=== PATIENT | male | born 1935 | race Caucasian/White ===

== ENCOUNTER 2019-11-25 13:05 | Inpatient (IN) | payer MEDICARE ==
[~2019-11-25] VITALS: Ht 165.1 cm; Wt 74.8 kg
--- NOTE | 2019-11-25 13:10 | NUR ---
PT BIB RA 76 FROM HOME, SYNCOPAL EPISODE WHILE SITTING, CHEST DISCOMFORT, PT IS AAOX4, NOT IN RESPIRATORY DISTRESS, HOOKED TO RN ON SITE, KEPT RESTED AND COMFORTABLE, WILL CONTINUE TO MONITOR.
--- NOTE | 2019-11-25 13:15 | NUR ---
AT BEDSIDE FOR EVAL.
[2019-11-25] MEDS ORDERED: VANCOMYCIN 1 GM in IV D5W 250 ML IV ONE (13:30)
[2019-11-25] MEDS ORDERED: PIPERACILLIN /TAZOBACTAM 3.375 G in IV D5W 50 ML IV ONE (13:30)
[2019-11-25] MEDS ORDERED: IV NS 0.9% 1,000 ML BAG IV ONE (13:30)
--- NOTE | 2019-11-25 13:30 | NUR ---
IV LINE ESTABLISHED BLOOD DRAWN AND SENT TO LAB.
--- NOTE | 2019-11-25 13:35 | NUR ---
TRANSIT BUS OPERATOR AT BEDSIDE FOR XRAY.
[2019-11-25 13:38] LABS: BASOPHILS % (AUTO) 0.4 % (0.0-2.0); EOSINOPHILS % (AUTO) 0.8 % (0.0-6.0); HEMATOCRIT 30 % (39-51); HEMOGLOBIN 10.5 g/dL (13.5-17.5); LYMPHOCYTES % (AUTO) 10.6 % (20.0-44.0); MEAN CORPUSCULAR HGB CONC 35 g/dl (31.0-36.0); MEAN CORPUSCULAR VOLUME 94 fL (80-96); MONOCYTES # (AUTO) 0.4 /CMM (0.1-1.30); MONOCYTES % (AUTO) 4.4 % (2.0-12.0); NEUTROPHILS % (AUTO) 83.8 % (43.0-81.0); PLATELET COUNT (AUTO) 146 /CMM (150-450); RED BLOOD CELL COUNT(AUTO) 3.22 MIL/uL (4.5-6.0); WHITE BLOOD COUNT (AUTO) 9.5 K/uL (4.3-11.0)
[2019-11-25] MEDS ORDERED: ACETAMINOPHEN ES 500 MG TABLET ONE (13:44)
[2019-11-25 13:55] LABS: ALANINE AMINOTRANSFERASE 122 U/L (12-78); ALKALINE PHOSPHATASE 239 U/L (46-116); ASPARTATE AMINOTRANSFERASE 122 U/L (15-37); BILIRUBIN,DIRECT 0.8 mg/dL (0.0-0.2); BILIRUBIN,TOTAL 1.3 mg/dL (0.2-1.0); CALCIUM, SERUM 7.6 mg/dL (8.5-10.1); CARBON DIOXIDE 21 mmol/L (21-32); CHLORIDE 103 mmol/L (98-107); CREATININE 2.2 mg/dL (0.6-1.3); GLUCOSE 134 mg/dL (74-106); POTASSIUM 4.8 mmol/L (3.5-5.1); SODIUM SERUM 131 mmol/L (136-145); UREA NITROGEN, BLOOD 32 mg/dL (7-18)
[2019-11-25] MEDS ORDERED: ACETAMINOPHEN ES 500 MG TABLET PO ONE (14:00)
[2019-11-25] MEDS ORDERED: ASPI-1169 PO (14:09)
[2019-11-25] MEDS ORDERED: OMEP40CA13 PO (14:09)
[2019-11-25] MEDS ORDERED: ATOR40TA PO (14:09)
[2019-11-25] MEDS ORDERED: CHOL100040 PO (14:09)
[2019-11-25] MEDS ORDERED: AMLO5TAB4 PO (14:09)
[2019-11-25] MEDS ORDERED: LEVO88TA5 PO (14:09)
[2019-11-25] MEDS ORDERED: CYAN1TAB9 PO (14:09)
[2019-11-25] MEDS ORDERED: OLME40TA12 PO (14:09)
[2019-11-25] MEDS ORDERED: RANO500T5 PO (14:09)
--- NOTE | 2019-11-25 14:50 | NUR ---
PT IS WHEELED TO CT SCAN VIA [facility].
--- NOTE | 2019-11-25 15:30 | NUR ---
PANEL ON-CALL PAGED
--- NOTE | 2019-11-25 15:33 | NUR ---
NURSING SUP GAVE [id number].
[2019-11-25] MEDS ORDERED: IV NS 0.9% 1,000 ML IV PRN (15:34)
--- NOTE | 2019-11-25 15:43 | NUR ---
US TECH AT BEDSIDE FOR ECHO CARDIOGRAM.
[2019-11-25] MEDS ORDERED: DOXA4TAB3 PO (15:47)
[2019-11-25] MEDS ORDERED: TELM80TA9 PO (15:47)
[2019-11-25] MEDS ORDERED: LATA2.5D7 EACHEYE (15:48)
[2019-11-25] MEDS ORDERED: TIMO5DRO35 EACHEYE (15:48)
[2019-11-25] MEDS ORDERED: METRONIDAZOLE 500MG/ NS 100ML 100 ML IV ONE ×2 (16:00→18:06)
[2019-11-25] MEDS ORDERED: CEFTRIAXONE 1 G in IV D5W 50 ML IV ONE (16:00)
--- NOTE | 2019-11-25 16:20 | NUR ---
REPORT GIVEN TO YOEL ISLAS FOR CULLEN.
[2019-11-25 17:00] VITALS: BP 96/49
[2019-11-25] MEDS ORDERED: MAG HYDROX/AL HYDROX/SIMETH 30 ML UDC PO PRN (17:00)
[2019-11-25] MEDS ORDERED: Z GUARD REMEDY 2 OZ OINT TP PRN (17:00)
[2019-11-25] MEDS ORDERED: ONDANSETRON HCL/PF 4 MG/2 ML VIAL IVP PRN (17:00)
[2019-11-25] MEDS ORDERED: MAGNESIUM HYDROXIDE 30 ML UDC PO PRN (17:00)
--- NOTE | 2019-11-25 17:00 | NUR ---
QUALITY PROCESS ENGINEER ADMITTING NOTES ADMITTED PT FROM ER.WITH DX OF SYNCOPE.PT IS ALERT AND [place] SPEAKING. NO SOB ON ROOM AIR AND JUST WANTED TO SLEEP/REST.KEPT COMFORTABLE. DENIES ANY PAIN OR DISTRESS.NO C/O CHEST PAIN AT THIS TIME.ON TELE WITH SR HR 76.ORIENTED TO THE ROOM AND USE OF CALL LIGHT.IV H/L TO LT AC AND RFA INTACT AND PATENT. SKIN INTACT.CALL LIGHT PLACED WITHIN REACH.
[2019-11-25] MEDS: ASPIRIN 81 MG TAB.CHEW PO SCH (18:00)
[2019-11-25] MEDS ORDERED: CEFTRIAXONE 1GM BAG (ER ONLY) 50 ML IV ONE (18:06)
[2019-11-25] MEDS: IV NS 0.9% 1,000 ML IV PRN (18:31)
--- NOTE | 2019-11-25 19:30 | NUR ---
MANAGER CASINO PT IN BED, AWAKE AT THIS TIME. AOX4. ON 2L OF O2 VIA NC. STABLE. ON CARDIAC MONITORING. SAFETY PRECAUTIONS IN PLACE. WILL CONT TO MONITOR
[2019-11-25 20:00] VITALS: BP 112/54
[2019-11-25 20:27] VITALS: BP 112/54
[2019-11-26] VITALS (60 sets, daily range): BP systolic 72–140; BP diastolic 26–90
--- NOTE | 2019-11-26 05:43 | NUR ---
INCIDENT RESPONSE CONSULTANT NO SIGNIFICANT CHANGES, NO COMPLAIN OF CHEST PAIN, MONITORED ACCORDINGLY, NEEDS ATTENDED AND ANTICIPATED, KEPT CLEAN, DRY AND COMFORTABLE AT ALL TIMES, NO S/S OF DISTRESS, SAFETY MEASURES AT ALL TIMES. ENDORSE TO NEXT SHIFT POC.
[2019-11-26] MEDS: IV NS 0.9% 1,000 ML IV PRN (06:48)
--- NOTE | 2019-11-26 07:01 | NUR ---
RECEIVED CALL FROM THE LAB BLOOD CULTURE GRAM NEGATIVE RODS WILL PAGED HOSPITALIST
--- NOTE | 2019-11-26 07:10 | NUR ---
PAGED EPIC RELAYING GRAM NEGATIVE RODS AWAITING CALL BACK WILL ENDORSE NEXT SHIFT
--- NOTE | 2019-11-26 07:11 | NUR ---
SPOKE TO DR. TAM RELAYED GRAM NEGATIVE RODS BLOOD PRELIM NO NEW ORDERS AT THIS TIME. READ BACK ADN VERIFIED ORDERS NOTED AND CARRIED OUT
[2019-11-26 07:51] LABS: BASOPHILS % (AUTO) 0.2 % (0.0-2.0); HEMATOCRIT 34 % (39-51); HEMOGLOBIN 11.7 g/dL (13.5-17.5); LYMPHOCYTES # (AUTO) 0.5 /CMM (0.8-4.8); LYMPHOCYTES % (AUTO) 2.7 % (20.0-44.0); MEAN CORPUSCULAR HGB CONC 35 g/dl (31.0-36.0); MEAN CORPUSCULAR VOLUME 94 fL (80-96); MONOCYTES # (AUTO) 0.4 /CMM (0.1-1.30); NEUTROPHILS # (AUTO) 16.9 /CMM (1.8-8.9); NEUTROPHILS % (AUTO) 95.1 % (43.0-81.0); PLATELET COUNT (AUTO) 148 /CMM (150-450); RED BLOOD CELL COUNT(AUTO) 3.62 MIL/uL (4.5-6.0); WHITE BLOOD COUNT (AUTO) 17.8 K/uL (4.3-11.0)
[2019-11-26 08:00] LABS: ALANINE AMINOTRANSFERASE 554 U/L (12-78); ALBUMIN 3.4 g/dL (3.4-5.0); ALKALINE PHOSPHATASE 400 U/L (46-116); ASPARTATE AMINOTRANSFERASE 319 U/L (15-37); BILIRUBIN,TOTAL 4.4 mg/dL (0.2-1.0); CALCIUM, SERUM 8.5 mg/dL (8.5-10.1); CARBON DIOXIDE 15 mmol/L (21-32); CHLORIDE 100 mmol/L (98-107); CHOLESTEROL 103 mg/dL (<200); CREATININE 2.7 mg/dL (0.6-1.3); GLUCOSE 121 mg/dL (74-106); HDL CHOLESTEROL 36 mg/dL (40-60); LDL 60 mg/dL (0-99); PHOSPHORUS 4.4 mg/dL (2.5-4.9); POTASSIUM 4.9 mmol/L (3.5-5.1); SODIUM SERUM 132 mmol/L (136-145); TOTAL PROTEIN, SERUM 6.9 g/dL (6.4-8.2); TRIGLYCERIDES 112 mg/dL (30-150); UREA NITROGEN, BLOOD 42 mg/dL (7-18)
[2019-11-26] MEDS ORDERED: CEFTRIAXONE 1 G in IV D5W 50 ML IV SCH (08:00)
[2019-11-26 08:37] LABS: IRON, SERUM 12 ug/dl (50-175); TOTAL IRON BINDING CAPACITY 227 ug/dl (250-450)
[2019-11-26] MEDS: LEVOTHYROXINE SODIUM 88 MCG TABLET PO SCH (08:42)
[2019-11-26] MEDS: CHOLECALCIFEROL 1,000 UNIT TABLET (VIT D3) PO SCH (08:42)
[2019-11-26] MEDS: PANTOPRAZOLE 40 MG TABLET.DR PO SCH (08:42)
[2019-11-26 08:43] LABS: MAGNESIUM 1.1 mg/dL (1.8-2.4)
--- NOTE | 2019-11-26 08:43 | NUR ---
MS/RN Troponin Call received from lab with critical result: -Troponin 5.006 -Magnesium 1.1
--- NOTE | 2019-11-26 08:45 | NUR ---
MS/RN Dr Florentin Lerma called to inform of critical troponin result. Order given for heparin infusion.
--- NOTE | 2019-11-26 08:56 | NUR ---
MS/merchandising coordinator called Lab called to inform that stat blood draw had been ordered for patient as heparin needed to be calculated. Stated that somebody would come over to draw.
[2019-11-26] MEDS ORDERED: CARVEDILOL 3.125 MG TABLET PO SCH (09:00)
[2019-11-26 09:10] LABS: FERRITIN 1938 ng/mL (8-388)
[2019-11-26] MEDS ORDERED: IV NS 0.9% 500 ML IV ONE (09:30)
[2019-11-26] MEDS: Magnesium 1GM/D5W 100ML PREMIX 100 ML IV SCH ×4 (09:44→12:21)
--- NOTE | 2019-11-26 10:15 | NUR ---
MS/RN Heparin order Heparin order sheet completed and faxed to pharmacy, order entered for bolus.
--- NOTE | 2019-11-26 10:37 | NUR ---
MS/RN Heparin bolus Heparin bolus 5,600units administered as per order.
--- NOTE | 2019-11-26 10:45 | NUR ---
MS/RN Desaturating Patient starting to desaturate on 3l oxygen, saturation noted to be low 70's, increased to 5l, saturation still in 70's. Placed on non rebreather mask at 15l. Saturation 90% Still hypotensive despite 500ml bolus being administered. 1033 - 79/41 1037 - 72/41
--- NOTE | 2019-11-26 10:58 | NUR ---
MS/RN Higher level of care Telephone order given to transfer patient to ICU, order entered by MD for ABG and dobutamine drip. Family made aware of patient's change in condition by Dr Denton. Patient remains full code.
[2019-11-26] MEDS ORDERED: HEPARIN SODIUM, PORCINE 5000 UNITS/1 ML VIAL SQ ONE (11:00)
--- NOTE | 2019-11-26 11:00 | NUR ---
MS/retail branch manager Patient transferred to ICU room 254 for higher level of care. All personal belongings with patient including cell phone (endorsed to charge nurse) Bedside report given to Sebastian.
[2019-11-26] MEDS: HEPARIN INFUSION/D5W 500 ML IV PRN (11:09)
[2019-11-26 11:19] LABS: ABG BASE EXCESS -11.7 mmol/L; ABG OXYGEN SATURATION 91.3 % (92.0-98.5); ABG PCO2 25.5 mmHg (35.0-45.0); ABG PO2 67.5 mmHg (75.0-100.0); COHb 0.4 % (0.5-1.5); MetHb 0.3 % (0.0-1.5); O2Hb 90.7 % (94.0-97.0); SITE, ABG Right Brachial; VENT MODE, BG NON REBREATHER 100%
[2019-11-26] MEDS ORDERED: DOBUTamine 500 MG in IV D5W 210 ML IV PRN ×4 (11:30)
[2019-11-26] MEDS: PIPERACILLIN /TAZOBACTAM 2.25 G in IV D5W 50 ML IV SCH ×2 (12:52→18:28)
--- NOTE | 2019-11-26 13:47 | NUR ---
RN NOTE Received patient transfer at [address] [place] [address] for desat 90% on 15LPM via NRB. Patient is awake, A/Ox3, Cameroonian speaking. Trop 5, started on Heparin drip at 1200 u/hr, bolus given by previous nurse. LAC PIV intact. Mg IVPB ongoing. SBP 80's, obtained order for Dobutamine. ABG resulted, made Dr. Denton aware, with rec of Bipap, Dr. Veras in the unit, made aware for ABG. With order for high flow, placed high flow by RT, 95% on 30LPM 80% FIO2. Dr. Veras ordered to swab for Covid test, specimen gathered and sent to lab. Placed on isolation prec for Covid.
[2019-11-26] MEDS: ASPIRIN 81 MG TAB.CHEW PO SCH (18:28)
--- NOTE | 2019-11-26 19:15 | NUR ---
RN OPENING ICU NOTES RECEIVED PT AWAKE ON BED A/O X 4 [place] CITIZEN SPEAKING UNDERSTAND LITTLE PORTUGUESE, VERBAL AND COOPERATIVE,ON HIGH FLOW 30L 80% SPO2 95% WITH LAC# 18 WITH ONGOING DOBUTAMIN @ 2MCG/KG/MIN AND NS @ 75ML/HR HEPARIN WAS HOLD FOR 60 MINS D/T PTT 150 PER PROTOCOL WILL RESUME AFTER 60 MINS ON TELE MONITOR WITH READING SINUS RHYTHM @ 70'S ON DROPLET ISOLATION TO R/O COVID 19 PENDING RESULTS, SAFETY MEASURE MAINTAINED CALL LIGHT WITHIN REACH BED ON LOWEST POSITION AND LOCKED WILL CONT TO MONITOR
--- NOTE | 2019-11-26 19:28 | NUR ---
RN NOTE Received call from lab, PTT >150, held Hepairn and endorsed to Khurram, will follow jatin, hold for 1 hr then decrease 250U/hr, Khurram agreed.
--- NOTE | 2019-11-26 20:30 | NUR ---
DIRECTOR OF PRECLINICAL RESEARCH NOTES HEPARIN RESTARTED @ 950 UNITS/HR PER PROTOCOL PTT ORDERED ON 11/27/2019 @ 9365
--- NOTE | 2019-11-26 21:00 | NUR ---
MANAGER BUSINESS BANKING NOTES PICC LINE INSERTED BY PICC LINE NURSE JASEN DIALLO @ OH PATENT WITH GOOD BACKFLOW
[2019-11-27] VITALS (94 sets, daily range): BP systolic 89–148; BP diastolic 25–94
[2019-11-27] MEDS: PIPERACILLIN /TAZOBACTAM 2.25 G in IV D5W 50 ML IV SCH ×3 (01:30→17:34)
[2019-11-27] MEDS: IV NS 0.9% 1,000 ML IV PRN ×2 (02:00→16:18)
[2019-11-27 02:37] LABS: BASOPHILS % (AUTO) 0.1 % (0.0-2.0); HEMATOCRIT 29 % (39-51); LYMPHOCYTES # (AUTO) 0.6 /CMM (0.8-4.8); LYMPHOCYTES % (AUTO) 3.6 % (20.0-44.0); MEAN CORPUSCULAR HGB CONC 35 g/dl (31.0-36.0); MEAN CORPUSCULAR VOLUME 93 fL (80-96); MONOCYTES # (AUTO) 0.6 /CMM (0.1-1.30); MONOCYTES % (AUTO) 3.4 % (2.0-12.0); NEUTROPHILS # (AUTO) 15.9 /CMM (1.8-8.9); NEUTROPHILS % (AUTO) 92.9 % (43.0-81.0); PLATELET COUNT (AUTO) 123 /CMM (150-450); RED BLOOD CELL COUNT(AUTO) 3.07 MIL/uL (4.5-6.0); WHITE BLOOD COUNT (AUTO) 17.1 K/uL (4.3-11.0)
[2019-11-27 02:49] LABS: ALANINE AMINOTRANSFERASE 307 U/L (12-78); ALBUMIN 2.7 g/dL (3.4-5.0); ALKALINE PHOSPHATASE 266 U/L (46-116); ASPARTATE AMINOTRANSFERASE 160 U/L (15-37); BILIRUBIN,TOTAL 3.6 mg/dL (0.2-1.0); CALCIUM, SERUM 7.5 mg/dL (8.5-10.1); CARBON DIOXIDE 18 mmol/L (21-32); CHLORIDE 95 mmol/L (98-107); GLUCOSE 287 mg/dL (74-106); MAGNESIUM 2.1 mg/dL (1.8-2.4); PHOSPHORUS 3.7 mg/dL (2.5-4.9); POTASSIUM 4.2 mmol/L (3.5-5.1); SODIUM SERUM 130 mmol/L (136-145); UREA NITROGEN, BLOOD 44 mg/dL (7-18)
--- NOTE | 2019-11-27 03:30 | NUR ---
SSN/SSBN WEAPONS EQUIPMENT OPERATOR NOTES APTT NEED TO BE REDRAWN DUE TO THE FIRST SPECIMEN WAS COLLECTED FROM PICC LINE NEED TO GET FROM OPPOSITE EXTREMITIES
--- NOTE | 2019-11-27 06:00 | NUR ---
COATING MACHINE FEEDER NOTES RECEIVED PTT RESULTS WITH 118.8 HOLD HEPARIN DRIP 60 MINS PER PROTOCOL THEN WILL RESUME IT @ 700 UNITS/HR PRE PROTOCOL PTT WAS ORDERED @ [address] DUONG NOTED AND CARRIED OUT
--- NOTE | 2019-11-27 07:06 | NUR ---
PIPE LINE REPAIRER NOTES PT IS SLEEPING ON BED EASY TO AWAKE, ALERT ORIENTED X4 CAMBOD[place] SPEAKING, ON HI FLOW O2 SPO2@ 95% WITH OH TLC WITH ONGOING NS @ 75ML/HR HEPARIN DRIP RESTARTED @ 700 UNITS/HR ON TELE MONITOR WITH CURRENT READING OF SINUS RHYTHM DROPLET PRECAUTION MAINTAINED FOR R/O COVID 19 SAFTY MEASURE MAINTAINED BED ON LOWEST POSITION ALL NEEDS ATTENDED WILL CONT TO MONITOR
[2019-11-27] MEDS: LEVOTHYROXINE SODIUM 88 MCG TABLET PO SCH (07:24)
[2019-11-27] MEDS: PANTOPRAZOLE 40 MG TABLET.DR PO SCH (07:25)
[2019-11-27] MEDS: CHOLECALCIFEROL 1,000 UNIT TABLET (VIT D3) PO SCH (08:21)
[2019-11-27 10:45] LABS: ABG BASE EXCESS -9.7 mmol/L; ABG OXYGEN SATURATION 96.4 % (92.0-98.5); ABG PCO2 26.4 mmHg (35.0-45.0); ABG PH 7.356 (7.350-7.450); ABG PO2 96.4 mmHg (75.0-100.0); AaDO2 446.3 mmHg; MetHb 0.3 % (0.0-1.5); O2Hb 96.1 % (94.0-97.0); SITE, ABG Right Radial; VENT MODE, BG 45L 80%
[2019-11-27] MEDS: HEPARIN INFUSION/D5W 500 ML IV PRN (11:06)
--- NOTE | 2019-11-27 14:00 | NUR ---
STEWARD/STEWARDESS THIRD NOTES PTT CAME WITH 64.4 SEC PER PROTOCOL THERES NO CHANGES ON RATE SO IT WILL STAY ON 700 UNITS/HR
[2019-11-27] MEDS: SOD FERRIC GLUC 125 MG in IV NS 0.9% 100 ML IV SCH (14:14)
[2019-11-27] MEDS: ASPIRIN 81 MG TAB.CHEW PO SCH (17:29)
--- NOTE | 2019-11-27 18:45 | NUR ---
SUPERINTENDENT OPERATING CLOSING NOTES PT IS AWAKE, ALERT ORIENTED X4 [place] SPEAKING, ON HI FLOW FIO2 80% O2 SPO2@ 95% WITH OH TLC WITH ONGOING NS @ 75ML/HR HEPARIN DRIP RESTARTED @ 700 UNITS/HR ON TELE MONITOR WITH CURRENT READING OF SINUS RHYTHM SAFETY MEASURE MAINTAINED BED ON LOWEST POSITION ALL NEEDS ATTENDED WILL ENDORSE TO BODYWORK THERAPIST NURSE
--- NOTE | 2019-11-27 19:00 | NUR ---
SLUBBER TENDER NOTE RECEIVED PATIENT IN BED RESTING, HOB ELEVATED, ON HIGH FLOW O2 @ 45 L. BREATHING EVEN AND NON LABORED. NO SOB NOTED AT THIS TIME. PATIENT IS A&O X3. ABLE TO MAKE NEEDS KNOWN. ON HEPARIN DRIP @ 700 UNITS/HOUR. IN NO APPARENT DISTRESS NOTES AT THIS TIME. NO CURRENT S/S OF BLEEDING. IV FLUIDS NS @ 75ML/HR. IV SITE ON OH TLC CLEAN AND PATENT. NO C/O OF PAIN AT THIS TIME. PATIENT IS MOTIVATED TO SELF CARE AND SELF REPOSITIONING IN BED. URINAL AT BEDSIDE. BED LOWERED AND LOCKED FOR SAFETY. WILL CONTINUE TO MONITOR.
[2019-11-28] VITALS (44 sets, daily range): BP systolic 95–137; BP diastolic 39–75
[2019-11-28] MEDS: PIPERACILLIN /TAZOBACTAM 2.25 G in IV D5W 50 ML IV SCH ×3 (01:28→17:20)
--- NOTE | 2019-11-28 03:00 | NUR ---
LINTER OPERATOR NOTE PATIENT REFUSED BED BATH AT THIS TIME. PATIENT IS A&O X3. MOTIVATED TO SELF CARE. ABLE TO REPOSITION SELF ON BED. WILL CONTINUE TO MONITOR.
[2019-11-28 04:50] LABS: BASOPHILS % (AUTO) 0.1 % (0.0-2.0); EOSINOPHILS % (AUTO) 0.4 % (0.0-6.0); HEMATOCRIT 29 % (39-51); HEMOGLOBIN 10.2 g/dL (13.5-17.5); LYMPHOCYTES # (AUTO) 0.8 /CMM (0.8-4.8); MEAN CORPUSCULAR HGB CONC 35 g/dl (31.0-36.0); MEAN CORPUSCULAR VOLUME 94 fL (80-96); MONOCYTES # (AUTO) 0.6 /CMM (0.1-1.30); MONOCYTES % (AUTO) 4.5 % (2.0-12.0); NEUTROPHILS # (AUTO) 11.4 /CMM (1.8-8.9); PLATELET COUNT (AUTO) 135 /CMM (150-450); RED BLOOD CELL COUNT(AUTO) 3.09 MIL/uL (4.5-6.0); WHITE BLOOD COUNT (AUTO) 12.8 K/uL (4.3-11.0)
[2019-11-28 05:07] LABS: ALANINE AMINOTRANSFERASE 209 U/L (12-78); ALBUMIN 2.6 g/dL (3.4-5.0); ALKALINE PHOSPHATASE 276 U/L (46-116); ASPARTATE AMINOTRANSFERASE 67 U/L (15-37); BILIRUBIN,TOTAL 1.8 mg/dL (0.2-1.0); CALCIUM, SERUM 8.1 mg/dL (8.5-10.1); CARBON DIOXIDE 18 mmol/L (21-32); CHLORIDE 104 mmol/L (98-107); CREATININE 2.3 mg/dL (0.6-1.3); GLUCOSE 112 mg/dL (74-106); PHOSPHORUS 3.1 mg/dL (2.5-4.9); POTASSIUM 4.1 mmol/L (3.5-5.1); SODIUM SERUM 135 mmol/L (136-145); TOTAL PROTEIN, SERUM 6.2 g/dL (6.4-8.2); UREA NITROGEN, BLOOD 41 mg/dL (7-18)
--- NOTE | 2019-11-28 05:15 | NUR ---
MASON FOREMAN/SUPERINTENDANT NOTE RECEIVED CRITICAL LAB VALUE FROM [facility] FOR PATIENT TROPONIN OF 6.[address] DUONG NOTIFIED. PATIENT IS CURRENTLY ON HEPARIN DRIP @ 700 U/HR. STOPPED HEPARIN DRIP AT THIS TIME PER HEPARIN PROTOCOL.
--- NOTE | 2019-11-28 05:45 | NUR ---
BAR HELPER NOTE HEPARIN DRIP RESUMED AND DECREASED TO 550 U/HR AT THIS TIME PER PROTOCOL. PATIENT IS STABLE, NO COMPLAINTS OF PAIN, NO BLEEDING NOTED AT THIS TIME. WILL CONTINUE TO MONITOR.
[2019-11-28] MEDS: IV NS 0.9% 1,000 ML IV PRN ×2 (06:00→22:25)
--- NOTE | 2019-11-28 06:46 | NUR ---
PANTOGRAPHER NOTE PATIENT REMAINED STABLE THROUGHOUT THE NIGHT. PATIENT KEPT ON HEPARIN DRIP PER PROTOCOL. NO C/O OF PAIN. NO S/S OF BLEEDING. KEPT ON O2 HIGH FLOW @ 45 L. O2 SATURATION FLUCTUATED BETWEEN 87-92% THROUGHOUT THE NIGHT. PATIENT REFUSED BED BATH AND LINEN CHANGE IN THIS SHIFT. PATIENT REQUESTED NOT TO BE DISTURBED WHILE SLEEPING. PATIENT IS A&O X3. WILL ENDORSE TO AM SHIFT RN FOR CONTINUATION OF CARE.
--- NOTE | 2019-11-28 07:15 | NUR ---
GASKET FORMER OPENING NOTE Received patient asleep in bed no signs of distress. On High Flow 100% tolerating well. Appears calm and relaxed. Patient is AO x4 no co pain or discomfort. Has Heparin drip @ 550u/hr and NS @ 75ml/hr runniing in OH TLC. Patient has PTT @ 11:45am. Safety measure reinforced. Bed locked and on lowest position. Call light within reach. Will cont to monitor.
[2019-11-28] MEDS: PANTOPRAZOLE 40 MG TABLET.DR PO SCH (08:09)
[2019-11-28] MEDS: LEVOTHYROXINE SODIUM 88 MCG TABLET PO SCH (08:09)
[2019-11-28] MEDS: CHOLECALCIFEROL 1,000 UNIT TABLET (VIT D3) PO SCH (08:11)
[2019-11-28 10:28] LABS: ABG BASE EXCESS -7.9 mmol/L; ABG OXYGEN SATURATION 91.5 % (92.0-98.5); ABG PH 7.407 (7.350-7.450); ABG PO2 64.6 mmHg (75.0-100.0); AaDO2 479.6 mmHg; COHb 0.3 % (0.5-1.5); MetHb 0.3 % (0.0-1.5); SITE, ABG Right Brachial; VENT MODE, BG figh flow @ 80%
--- NOTE | 2019-11-28 10:59 | NUR ---
HIGH FLOW SETTINGS BELOW CHANGE PER DR. RAWLS: FLOW 60 L FIO2 100% Addendum: 11/28/19 at 1100 by SYLVESTER LINARES RT Amended: Links added.
--- NOTE | 2019-11-28 13:00 | NUR ---
SHUTTLE BUS DRIVER NOTE Receive PTT of 41.6. Per protocol increase to 150u/hr. Currently at 550u/hr. Now on 700u/hr.
[2019-11-28] MEDS: SOD FERRIC GLUC 125 MG in IV NS 0.9% 100 ML IV SCH (16:02)
[2019-11-28] MEDS: ASPIRIN 81 MG TAB.CHEW PO SCH (17:11)
--- NOTE | 2019-11-28 19:00 | NUR ---
ICU CLOSING NOTE Patient in bed awake calm and relaxed. No signs of distress. AO x4 No co pain or discomfort. Heart and lung sounds within normal limits. No co of chest pain. Blood pressure remained within normal limits. Patient was able to have bowel movement mixed with urine in commode. Unable to collect for Fecal Occult Blood test. No signs of bleeding. Skin is intact. Continue on Heparin drip @ 700unit/hr and NS @ 75ml/hr tolerating well on OH TLC. Oz saturation within 95-100%. Tolerating High Flow @ 60L and Fio2 100%. PTT will be drawn on 1900. Safety measures reinforced. Call light within reach. Vital signs within normal limitis. Bed locked and on lowest position. Assisted with ADLs and hygiene. All needs met. All due meds given. Will endorse to parachute folder nurse for kenan.
--- NOTE | 2019-11-28 19:15 | NUR ---
ICU/RN RECEIVED PATIENT A/OX3 IN BED WITH NO SIGN OF ANY RESPIRATORY DISTRESS. PATIENT IS ON A HIGH FLOW OF 60L AT 100%. SATURATING AT 95% WITH NO COMPLAINT OF ANY SOB. PATIENT HAS A OH PICC LINE WITH HEPARIN RUNNING AT 700UNIT AND NS AT 75CC/HR.PATIENT IS SR AT BEDSIDE MONITOR. PATIENT IS ABLE TO AMBULATE WITH ASSISTANCE. URINAL IS AT BEDSIDE WELL COMMODE. PATIENT IS AWARE TO PRESS CALL LIGHT BUTTON IF NEEDING TO USE COMMODE. ALL SAFETY PRECAUTIONS APPLIED. WILL CONTINUE TO MONITOR PATIENT.
--- NOTE | 2019-11-28 20:09 | NUR ---
RECEIVED PTT LAB FOR 0, PTT IS 54.2 PER [facility] PROTOCOL NO CHANGE ON HEPARIN DRIP. HEPARIN CONTINUES TO RUN AT 700UNITS/ WILL CONTINUE TO MONITOR PATIENT.
[2019-11-28] MEDS: HEPARIN INFUSION/D5W 500 ML IV PRN (22:26)
[2019-11-29] VITALS (24 sets, daily range): BP systolic 108–139; BP diastolic 49–112
[2019-11-29] MEDS: PIPERACILLIN /TAZOBACTAM 2.25 G in IV D5W 50 ML IV SCH ×2 (01:32→09:34)
--- NOTE | 2019-11-29 07:12 | NUR ---
ICU/RN PATIENT IN BED WITH NO SIGN OF ANY DISTRESS. PATIENT CURRENTLY ON THE PHONE. PATIENT CONTINUES ON HIGH FLOW 02 OF 60L ON 100% SATURATING AT 96%. PATIENT CONTINUES ON HEPARIN DRIP AT 700 UNIT ON OH PICC LINE AND NS RUNNING AT 75CC/HR. ALL SAFETY PRECAUTION HAVE BEEN APPLIED. ENDORSED PATIENT TO MORNING SHIFT NURSE FOR CULLEN.
--- NOTE | 2019-11-29 07:20 | NUR ---
RN OPENING NOTE: RECEIVED PATIENT IN BED THIS MORNING. PATIENT IS ALERT AND ORIENTED X3, RESPONDS APPROPRIATELY. ON HIGH FLOW O2, TOLERATING WELL, SATING WELL, NO SIGNS OF RESPIRATORY DISTRESS NOTED. NO SIGNS OF RESPIRATORY DISTRESS NOTED. AMBULATORY, STEADY GAIT, USES BEDSIDE COMMODE AND URINAL. PICC LINE OH, #18 LAC, C/D/I, FLUSHES WELL, NO SIGNS OF COMPLICATIONS NOTED. HEPARIN DRIP RUNNING AT 700 UNITS/HR, NO SIGNS OF BLEEDING NOTED. SAFETY MEASURES IMPLEMENTED, BED IN LOWEST POSITION, LOCKED, SIDE RAILS UP X2, CALL LIGHT WITHIN REACH. WILL CONTINUE TO MONITOR PATIENT FOR CHANGES. Addendum: 11/29/19 at 1038 by KWESI MARTE RN PATIENT ON BED SIDE MONITOR, SR, BBB, INVERTED T WAVES NOTED WITH HR IN THE 60S.
[2019-11-29] MEDS: ACETAMINOPHEN 325 MG TABLET PO PRN (08:16)
[2019-11-29] MEDS: CHOLECALCIFEROL 1,000 UNIT TABLET (VIT D3) PO SCH (08:16)
[2019-11-29] MEDS: LEVOTHYROXINE SODIUM 88 MCG TABLET PO SCH (08:16)
[2019-11-29] MEDS: PANTOPRAZOLE 40 MG TABLET.DR PO SCH (08:16)
[2019-11-29 11:26] LABS: BASOPHILS % (AUTO) 0.4 % (0.0-2.0); EOSINOPHILS % (AUTO) 2.3 % (0.0-6.0); HEMATOCRIT 30 % (39-51); HEMOGLOBIN 10.3 g/dL (13.5-17.5); LYMPHOCYTES # (AUTO) 0.6 /CMM (0.8-4.8); LYMPHOCYTES % (AUTO) 8.2 % (20.0-44.0); MEAN CORPUSCULAR HGB CONC 34 g/dl (31.0-36.0); MEAN CORPUSCULAR VOLUME 94 fL (80-96); MONOCYTES # (AUTO) 0.7 /CMM (0.1-1.30); MONOCYTES % (AUTO) 9.4 % (2.0-12.0); NEUTROPHILS # (AUTO) 5.8 /CMM (1.8-8.9); NEUTROPHILS % (AUTO) 79.7 % (43.0-81.0); PLATELET COUNT (AUTO) 146 /CMM (150-450); RED BLOOD CELL COUNT(AUTO) 3.17 MIL/uL (4.5-6.0); WHITE BLOOD COUNT (AUTO) 7.2 K/uL (4.3-11.0)
[2019-11-29 11:35] LABS: ALANINE AMINOTRANSFERASE 126 U/L (12-78); ALBUMIN 2.5 g/dL (3.4-5.0); ALKALINE PHOSPHATASE 300 U/L (46-116); ASPARTATE AMINOTRANSFERASE 33 U/L (15-37); BILIRUBIN,TOTAL 1.3 mg/dL (0.2-1.0); CALCIUM, SERUM 8.1 mg/dL (8.5-10.1); CARBON DIOXIDE 20 mmol/L (21-32); CHLORIDE 106 mmol/L (98-107); CREATININE 1.7 mg/dL (0.6-1.3); GLUCOSE 107 mg/dL (74-106); MAGNESIUM 1.6 mg/dL (1.8-2.4); PHOSPHORUS 2.3 mg/dL (2.5-4.9); POTASSIUM 3.9 mmol/L (3.5-5.1); SODIUM SERUM 138 mmol/L (136-145); TOTAL PROTEIN, SERUM 6.2 g/dL (6.4-8.2); UREA NITROGEN, BLOOD 31 mg/dL (7-18)
[2019-11-29] MEDS: IV NS 0.9% 1,000 ML IV PRN (12:11)
[2019-11-29] MEDS: SOD FERRIC GLUC 125 MG in IV NS 0.9% 100 ML IV SCH (13:59)
[2019-11-29] MEDS ORDERED: HEPARIN SODIUM, PORCINE 5000 UNITS/1 ML VIAL IV ONE (15:00)
[2019-11-29] MEDS ORDERED: K PHOS NEUTRAL 250 MG TABLET PO ONE (15:30)
[2019-11-29] MEDS: ASPIRIN 81 MG TAB.CHEW PO SCH (17:18)
--- NOTE | 2019-11-29 19:14 | NUR ---
RN CLOSING NOTE: PATIENT REMAINS IN BED. NO SIGNS OF RESPIRATORY DISTRESS NOTED. NO SIGNS OF ACUTE DISTRESS NOTED. TELE MONITOR SR/BBB IN THE 70S. SAFETY MEASURES IMPLEMENTED, BED IN LOWEST POSITION, LOCKED, SIDE RAILS UP X2, CALL LIGHT WITHIN REACH. ENDORSED TO ONCOMING SHIFT RN FOR CONTINUITY OF CARE.
--- NOTE | 2019-11-29 19:30 | NUR ---
PATIENT'S IV ON THE LAC INFILTRATED AND BLEEDING. REMOVED IV AND SINCE PATIENT IS ON HEPARIN DRIP I MONITORED FOR ANY EXCESSIVE BLEEDING. PRESSURE WAS APPLIED. WILL CONTINUE TO MONITOR FOR ANY BLEEDING.
[2019-11-29] MEDS: CEFTRIAXONE 1 G in IV D5W 50 ML IV SCH (20:25)
--- NOTE | 2019-11-29 20:30 | NUR ---
PT IS AWAKE ALERT ON HFNC 45L, 60% FIO2. NO DISTRESS, CONTINUE TO MONITOR. Addendum: 11/29/19 at 2030 by DEVEN FLORES RT Amended: Links added.
--- NOTE | 2019-11-29 22:04 | NUR ---
PTT LAB 56.2. PER [facility] PROTOCOL NO CHANGE ON HEPARIN DRIP AND NEW PTT DRAW IN 24HRS. WILL CONTINUE TO MONITOR PATIENT.
[2019-11-30] VITALS (23 sets, daily range): BP systolic 71–148; BP diastolic 28–79
[2019-11-30] MEDS: IV NS 0.9% 1,000 ML IV PRN (04:20)
[2019-11-30] MEDS: HEPARIN INFUSION/D5W 500 ML IV PRN (04:22)
[2019-11-30 04:48] LABS: BASOPHILS % (AUTO) 0.5 % (0.0-2.0); EOSINOPHILS % (AUTO) 2.9 % (0.0-6.0); HEMATOCRIT 27 % (39-51); HEMOGLOBIN 9.4 g/dL (13.5-17.5); LYMPHOCYTES % (AUTO) 12.9 % (20.0-44.0); MEAN CORPUSCULAR HGB CONC 35 g/dl (31.0-36.0); MEAN CORPUSCULAR VOLUME 94 fL (80-96); MONOCYTES # (AUTO) 0.9 /CMM (0.1-1.30); MONOCYTES % (AUTO) 11.5 % (2.0-12.0); NEUTROPHILS # (AUTO) 5.7 /CMM (1.8-8.9); NEUTROPHILS % (AUTO) 72.2 % (43.0-81.0); PLATELET COUNT (AUTO) 150 /CMM (150-450); RED BLOOD CELL COUNT(AUTO) 2.86 MIL/uL (4.5-6.0); WHITE BLOOD COUNT (AUTO) 7.9 K/uL (4.3-11.0)
[2019-11-30 05:11] LABS: CALCIUM, SERUM 7.4 mg/dL (8.5-10.1); CARBON DIOXIDE 19 mmol/L (21-32); CHLORIDE 109 mmol/L (98-107); CREATININE 1.4 mg/dL (0.6-1.3); GLUCOSE 168 mg/dL (74-106); PHOSPHORUS 3.9 mg/dL (2.5-4.9); POTASSIUM 3.4 mmol/L (3.5-5.1); SODIUM SERUM 140 mmol/L (136-145); UREA NITROGEN, BLOOD 27 mg/dL (7-18)
[2019-11-30 05:27] LABS: OCCULT BLOOD STOOL POSITIVE (NEGATIVE)
--- NOTE | 2019-11-30 07:30 | NUR ---
RN OPENING NOTE: RECEIVED PATIENT IN BED THIS MORNING. PATIENT IS ALERT AND ORIENTED X3, RESPONDS APPROPRIATELY. ON HIGH FLOW O2, TOLERATING WELL, SATING WELL, NO SIGNS OF RESPIRATORY DISTRESS NOTED. NO SIGNS OF ACUTE DISTRESS NOTED. PATIENT ON BED SIDE MONITOR, SR, BBB, INVERTED T WAVES NOTED WITH HR IN THE 60S. AMBULATORY WITH ASSIST, USES BEDSIDE COMMODE AND URINAL. PICC LINE OH, #18 LAC, C/D/I, FLUSHES WELL, NO SIGNS OF COMPLICATIONS NOTED. SAFETY MEASURES IMPLEMENTED, BED IN LOWEST POSITION, LOCKED, SIDE RAILS UP X2, CALL LIGHT WITHIN REACH. WILL CONTINUE TO MONITOR PATIENT FOR CHANGES.
[2019-11-30] MEDS: CHOLECALCIFEROL 1,000 UNIT TABLET (VIT D3) PO SCH (08:07)
[2019-11-30] MEDS: POTASSIUM CHLORIDE 20 MEQ TAB.PRT.SR PO SCH ×2 (08:07→09:23)
[2019-11-30] MEDS: LEVOTHYROXINE SODIUM 88 MCG TABLET PO SCH (08:07)
[2019-11-30] MEDS: PANTOPRAZOLE 40 MG TABLET.DR PO SCH (08:07)
[2019-11-30] MEDS: ENOXAPARIN SODIUM 40 MG/0.4 ML DISP.SYRIN SQ SCH (08:12)
[2019-11-30] MEDS: ACETAMINOPHEN 325 MG TABLET PO PRN (08:18)
[2019-11-30] MEDS: Magnesium 1GM/D5W 100ML PREMIX 100 ML IV SCH ×4 (10:14→14:28)
[2019-11-30 10:40] LABS: ABG BASE EXCESS -7.1 mmol/L; ABG OXYGEN SATURATION 98.2 % (92.0-98.5); ABG PCO2 27.2 mmHg (35.0-45.0); ABG PH 7.401 (7.350-7.450); AaDO2 438.8 mmHg; COHb 0.3 % (0.5-1.5); MetHb 0.2 % (0.0-1.5); O2Hb 97.7 % (94.0-97.0); SITE, ABG Left Brachial; VENT MODE, BG NRB
--- NOTE | 2019-11-30 11:00 | NUR ---
RT 0900 PER MD ORDER, PLACED PT ON NRB POST ABG 1 HR. 1040 OBTAIN ABG AND PLACED PT ON 6L NC
[2019-11-30] MEDS: SOD FERRIC GLUC 125 MG in IV NS 0.9% 100 ML IV SCH (13:54)
[2019-11-30] MEDS: Potassium Chloride 40 MEQ in IV NS 0.9% 1,000 ML IV PRN (16:45)
[2019-11-30] MEDS: ASPIRIN 81 MG TAB.CHEW PO SCH (17:46)
--- NOTE | 2019-11-30 19:14 | NUR ---
RN CLOSING NOTE: PATIENT REMAINS IN BED. NO SIGNS OF RESPIRATORY DISTRESS NOTED. NO SIGNS OF ACUTE DISTRESS NOTED. TELE MONITOR SR/BBB IN THE 60S. SAFETY MEASURES IMPLEMENTED, BED IN LOWEST POSITION, LOCKED, SIDE RAILS UP X2, CALL LIGHT WITHIN REACH. ENDORSED TO ONCOMING SHIFT RN FOR CONTINUITY OF CARE.
--- NOTE | 2019-11-30 19:30 | NUR ---
RN OPENING NOTE RECEIVED PT IN BED. IN SEMI FOWLERS POSITION, PT AWAKE A/O X3. ON 6 LITERS VIA NC. PT IN NO RESPIRATORY DISTRESS. C/O NO PAIN AT THIS TIME. OH MIDLINE PATENT AND INTACT, FLUSHING WELL. URINAL AT BEDSIDE. SAFETY MEASURES IMPLEMENTED, BED IN LOWEST POSITION AND LOCKED, SIDE RAILS UP X2, CALL LIGHT WITHIN REACH, WILL CONTINUE TO MONITOR PT.
[2019-11-30] MEDS: CEFTRIAXONE 1 G in IV D5W 50 ML IV SCH (20:10)
[2019-12-01] VITALS (14 sets, daily range): BP systolic 124–161; BP diastolic 56–84
[2019-12-01 04:34] LABS: BASOPHILS % (AUTO) 0.6 % (0.0-2.0); EOSINOPHILS % (AUTO) 3.9 % (0.0-6.0); HEMATOCRIT 27 % (39-51); HEMOGLOBIN 9.4 g/dL (13.5-17.5); LYMPHOCYTES % (AUTO) 12.9 % (20.0-44.0); MEAN CORPUSCULAR HGB CONC 35 g/dl (31.0-36.0); MEAN CORPUSCULAR VOLUME 94 fL (80-96); MONOCYTES # (AUTO) 0.9 /CMM (0.1-1.30); MONOCYTES % (AUTO) 11.8 % (2.0-12.0); NEUTROPHILS # (AUTO) 5.3 /CMM (1.8-8.9); NEUTROPHILS % (AUTO) 70.8 % (43.0-81.0); PLATELET COUNT (AUTO) 173 /CMM (150-450); RED BLOOD CELL COUNT(AUTO) 2.85 MIL/uL (4.5-6.0); WHITE BLOOD COUNT (AUTO) 7.5 K/uL (4.3-11.0)
[2019-12-01 04:45] LABS: CALCIUM, SERUM 8.1 mg/dL (8.5-10.1); CARBON DIOXIDE 22 mmol/L (21-32); CHLORIDE 111 mmol/L (98-107); CREATININE 1.4 mg/dL (0.6-1.3); GLUCOSE 94 mg/dL (74-106); MAGNESIUM 1.9 mg/dL (1.8-2.4); POTASSIUM 4.1 mmol/L (3.5-5.1); SODIUM SERUM 143 mmol/L (136-145); UREA NITROGEN, BLOOD 21 mg/dL (7-18)
[2019-12-01] MEDS: Potassium Chloride 40 MEQ in IV NS 0.9% 1,000 ML IV PRN (06:01)
--- NOTE | 2019-12-01 07:03 | NUR ---
RN CLOSING NOTE PT AWAKE IN BED. A/O X3. ON 6 LITERS VIA NC. PT IN NO RESPIRATORY DISTRESS, C/O NO PAIN DURING SHIFT. OH MIDLINE PATENT AND INTACT, FLUSHING WELL. PT CURRENTLY NPO. ENDORSED TO AM RN ABOUT TRANSFER TO [place], PAPERWORK AND REPORT NEEDS TO BE GIVEN. NURSE MADE AWARE OF P/U TIME. SAFETY MEASURES IMPLEMENTED, BED IN LOWEST POSITION AND LOCKED, SIDE RAILS UP X2, CALL LIGHT WITHIN REACH. ENDORSED TO AM RN FOR CULLEN.
[2019-12-01] MEDS: PANTOPRAZOLE 40 MG TABLET.DR PO SCH (07:30)
[2019-12-01] MEDS: LEVOTHYROXINE SODIUM 88 MCG TABLET PO SCH (07:30)
[2019-12-01] MEDS ORDERED: ENOX40DI SQ (07:56)
[2019-12-01] MEDS ORDERED: CEFT1VIA15 IV (07:56)
[2019-12-01] MEDS: CHOLECALCIFEROL 1,000 UNIT TABLET (VIT D3) PO SCH (08:14)
[2019-12-01] MEDS: ENOXAPARIN SODIUM 40 MG/0.4 ML DISP.SYRIN SQ SCH (08:15)
--- NOTE | 2019-12-01 09:49 | NUR ---
RN NOTE 0715: Received patient awake, A/Ox4, Iranian speaking, understand Estonian. On 6LPM of O2 via Nc, 95% sat. With OH PICC intact, IVF NS with 40K @ 75. SR with BBB on the monitor. 0830: S/E by Dr. Ramirez, finalized DC papers, printed and discussed with patient, signed and will give copy to transporters. Held am meds for possible procedure today. Patient remained NPO, patient aware for the preop. Assisted to commode, noted with soft brown stool. 0945: Report given to Neha DIALLO to [facility] [phone]. Picked up by 3 personnels. Belongings checked and given to patient.
[2019-12-01] MEDS: ASPIRIN 81 MG TAB.CHEW PO SCH (17:13)
--- NOTE | 2019-12-01 17:15 | NUR ---
Tele/RN - Assessment Received patient from [facility] awake, A/O x 4, s/p left heart cath, angio-seal of the right femoral artery, dressing clean, dry, intact, no bleeding, no hematoma, no swelling on the right groin puncture site. RLE is warm, pulse strength good, sensation intact. Patient denies abdominal pain, groin pain, or back pain. VSS. Tele shows SR with BBB. Patient will remain flat on bed until 17:30 and will resume activity once post-op restriction completed.
--- NOTE | 2019-12-01 17:22 | NUR ---
Tele/RN - Notes Called pharmacy spoke with Gretta to prepare Ferrlecit and to send IVF NS with 40meq KCl.
--- NOTE | 2019-12-01 18:31 | NUR ---
Tele/RN - End of shift notes No significant change in condition, no bleeding noted on the right groin puncture site, activity resumed, denies pain, stable on 5lpm via NC. Will continue with current medical management.
[2019-12-01] MEDS: SOD FERRIC GLUC 125 MG in IV NS 0.9% 100 ML IV SCH (20:20)
[2019-12-01] MEDS: ZOLPIDEM TARTRATE 5 MG TABLET PO PRN (20:47)
[2019-12-01] MEDS: CEFTRIAXONE 1 G in IV D5W 50 ML IV SCH (21:20)
[2019-12-02] VITALS: BP 155/72
[2019-12-02 04:00] VITALS: BP 144/76
--- NOTE | 2019-12-02 06:55 | NUR ---
LIBRARIAN ASSISTANT NOTES AWAKE & RESPONSIVE. NOT IN ANY DISTRESS. NO SOB NOTED. DENIES ANY PAIN OR DISCOMFORT AT THIS TIME. ON TELE SR @ 74 WITH IV-HL PATENT & INTACT. MONITORED ACCORDINGLY. CALL LIGHT WITHIN REACH. BED IN LOWEST POSITION. SR UP X 2 FOR SAFETY. WILL ENDORSE TO NEXT SHIFT.
[2019-12-02 08:00] VITALS: BP 138/70
--- NOTE | 2019-12-02 08:00 | NUR ---
CONTRACT CLERK OPENING NOTES Received Patient awake and resting in bed. A/O x 3, Chadian speaking. VS stable with no acute distres Addendum: 12/02/19 at 0941 by VALENCIA HUNTER RN DISREGARD, INCOMPLETE
--- NOTE | 2019-12-02 08:00 | NUR ---
GLOBAL CHIEF EXPERIENCE OFFICER OPENING NOTES Received Patient awake and resting in bed. A/O x 3, Mosotho speaking. VS stable with no acute distress. Breathing even and unlabored on 4LPM via NC with no respiratory distress. Denies pain. No signs and symptoms of pain. Telemonitor in place and patent reading SR with HR-67. OH PICC Line intact, patent and flushing well. Safety precautions in place. Bed locked and set to lowest position with side rails x 2 up. All needs rendered at this time. Call light within reach. Will continue to monitor.
[2019-12-02] MEDS ORDERED: ATORVASTATIN 40 MG TABLET PO SCH (08:30)
[2019-12-02] MEDS ORDERED: ENOXAPARIN SODIUM 40 MG/0.4 ML DISP.SYRIN SQ SCH (09:00)
[2019-12-02] MEDS: PANTOPRAZOLE 40 MG TABLET.DR PO SCH (09:04)
[2019-12-02] MEDS: LEVOTHYROXINE SODIUM 88 MCG TABLET PO SCH (09:04)
[2019-12-02] MEDS: CHOLECALCIFEROL 1,000 UNIT TABLET (VIT D3) PO SCH (09:04)
[2019-12-02] MEDS: ENOXAPARIN SODIUM 40 MG/0.4 ML DISP.SYRIN SQ SCH (09:05)
[2019-12-02 09:41] LABS: BASOPHILS % (AUTO) 0.5 % (0.0-2.0); CALCIUM, SERUM 8.7 mg/dL (8.5-10.1); CARBON DIOXIDE 23 mmol/L (21-32); CHLORIDE 106 mmol/L (98-107); CREATININE 1.4 mg/dL (0.6-1.3); EOSINOPHILS % (AUTO) 3.4 % (0.0-6.0); GLUCOSE 114 mg/dL (74-106); HEMATOCRIT 31 % (39-51); HEMOGLOBIN 10.7 g/dL (13.5-17.5); LYMPHOCYTES # (AUTO) 0.9 /CMM (0.8-4.8); LYMPHOCYTES % (AUTO) 11.1 % (20.0-44.0); MEAN CORPUSCULAR HGB CONC 34 g/dl (31.0-36.0); MEAN CORPUSCULAR VOLUME 95 fL (80-96); MONOCYTES # (AUTO) 0.6 /CMM (0.1-1.30); MONOCYTES % (AUTO) 7.8 % (2.0-12.0); NEUTROPHILS % (AUTO) 77.2 % (43.0-81.0); PLATELET COUNT (AUTO) 226 /CMM (150-450); POTASSIUM 3.8 mmol/L (3.5-5.1); SODIUM SERUM 142 mmol/L (136-145); UREA NITROGEN, BLOOD 18 mg/dL (7-18); WHITE BLOOD COUNT (AUTO) 7.8 K/uL (4.3-11.0)
[2019-12-02 09:47] LABS: ALANINE AMINOTRANSFERASE 140 U/L (12-78); ALBUMIN 2.9 g/dL (3.4-5.0); ALKALINE PHOSPHATASE 337 U/L (46-116); ASPARTATE AMINOTRANSFERASE 68 U/L (15-37); BILIRUBIN,TOTAL 0.8 mg/dL (0.2-1.0); MAGNESIUM 1.5 mg/dL (1.8-2.4); PHOSPHORUS 3.4 mg/dL (2.5-4.9); TOTAL PROTEIN, SERUM 6.9 g/dL (6.4-8.2)
[2019-12-02] MEDS: FUROSEMIDE 40 MG/4 ML VIAL IV SCH ×3 (13:04→21:14)
[2019-12-02] MEDS: POTASSIUM CHLORIDE 20 MEQ TAB.PRT.SR PO SCH ×3 (13:04→15:12)
[2019-12-02 16:00] VITALS: BP 155/78
[2019-12-02] MEDS: ASPIRIN 81 MG TAB.CHEW PO SCH (17:08)
--- NOTE | 2019-12-02 18:22 | NUR ---
MS RN CLOSING NOTES Patient awake and resting in bed. A/O x 3, Tristanian speaking. VS stable with no acute distress. Breathing even and unlabored on 4LPM via NC with no respiratory distress. Denies pain. No signs and symptoms of pain. OH PICC Line intact, patent and flushing well. Safety precautions in place. Bed locked and set to lowest position with side rails x 2 up. All needs rendered at this time. Call light within reach. Will endorse plan of care to oncoming shift.
--- NOTE | 2019-12-02 19:10 | NUR ---
MS RN OPENING NOTES: PATIENT IN BED AWAKE, A/O X4. NO SOB NOTED. NOT IN PAIN. CALL LIGHT WITHIN REACH. BED IN LOWEST AND LOCKED POSITION.
[2019-12-02 20:00] VITALS: BP 142/74
[2019-12-02] MEDS: CEFTRIAXONE 1 G in IV D5W 50 ML IV SCH (21:13)
[2019-12-02] MEDS: ZOLPIDEM TARTRATE 5 MG TABLET PO PRN (21:14)
--- NOTE | 2019-12-03 06:14 | NUR ---
MS RN CLOSING NOTES: PATIENT IN BED ASLEEP. RESTED THROUGHOUT THE NIGHT. NO COMPLAIN OF PAIN. NO SOB NOTED. CALL LIGHT WITHIN REACH. BED ALARM ON. URINAL AT THE BEDSIDE. BED IN LOWEST AND LOCKED POSITION.
[2019-12-03 06:43] LABS: BASOPHILS % (AUTO) 0.5 % (0.0-2.0); EOSINOPHILS % (AUTO) 3.4 % (0.0-6.0); HEMATOCRIT 34 % (39-51); HEMOGLOBIN 11.5 g/dL (13.5-17.5); LYMPHOCYTES # (AUTO) 1.2 /CMM (0.8-4.8); LYMPHOCYTES % (AUTO) 13.4 % (20.0-44.0); MEAN CORPUSCULAR HGB CONC 34 g/dl (31.0-36.0); MEAN CORPUSCULAR VOLUME 95 fL (80-96); MONOCYTES # (AUTO) 0.8 /CMM (0.1-1.30); MONOCYTES % (AUTO) 8.9 % (2.0-12.0); NEUTROPHILS # (AUTO) 6.5 /CMM (1.8-8.9); NEUTROPHILS % (AUTO) 73.8 % (43.0-81.0); PLATELET COUNT (AUTO) 257 /CMM (150-450); RED BLOOD CELL COUNT(AUTO) 3.58 MIL/uL (4.5-6.0); WHITE BLOOD COUNT (AUTO) 8.8 K/uL (4.3-11.0)
[2019-12-03 07:03] LABS: CALCIUM, SERUM 9.1 mg/dL (8.5-10.1); CARBON DIOXIDE 27 mmol/L (21-32); CHLORIDE 103 mmol/L (98-107); CREATININE 1.7 mg/dL (0.6-1.3); GLUCOSE 102 mg/dL (74-106); POTASSIUM 3.8 mmol/L (3.5-5.1); SODIUM SERUM 141 mmol/L (136-145); UREA NITROGEN, BLOOD 22 mg/dL (7-18)
[2019-12-03] MEDS: PANTOPRAZOLE 40 MG TABLET.DR PO SCH (07:44)
[2019-12-03] MEDS: LEVOTHYROXINE SODIUM 88 MCG TABLET PO SCH (07:45)
[2019-12-03] MEDS ORDERED: SULF1TAB48 PO (07:50)
[2019-12-03] MEDS ORDERED: POTA10TA PO (07:50)
[2019-12-03] MEDS ORDERED: FURO-144 PO (07:50)
--- NOTE | 2019-12-03 08:00 | NUR ---
MS RN OPENING NOTES RECEIVED PATIENT IN BED, AWAKE, CONSCIOUS, COOPERATIVE, BREATHING AT ROOM AIR, NO SIGNS OF RESPIRATORY DISTRESS, OH PICC TRIPLE LUMEN SL, SIDE RAILS UP FOR SAFETY.
[2019-12-03] MEDS: CHOLECALCIFEROL 1,000 UNIT TABLET (VIT D3) PO SCH (08:57)
[2019-12-03] MEDS: ENOXAPARIN SODIUM 40 MG/0.4 ML DISP.SYRIN SQ SCH (08:58)
--- NOTE | 2019-12-03 13:01 | NUR ---
MS SENIOR SPECIALIST NOTES PATIENT WAS AWAKE, CONSCIOUS, COOPERATIVE, BREATHING AT ROOM AIR, NO SIGNS OF RESPIRATORY DISTRESS, WHEELCHAIR WAS USE GOING TO LOBBY TO MEET HIS SON.
== END 2019-12-03 12:55 | disposition home health service (06) | DRG 871 ==
LOC: ER 13:07 → TELE 16:59 → ICU 11-26 10:52 → TELE 11-26 10:52 → UNDODISIN 12-01 10:00 → TELE 12-01 15:47 → MED 12-02 08:45
PROVIDERS: ADMIT Internal Medicine; ATTEND Family Medicine
PROC: 02HV33Z Insertion of Infusion Device into Superior Vena Cava, Percutaneous Approach (ICD-10-PCS; principal; 2019-11-26)
PROC: B548ZZA Ultrasonography of Superior Vena Cava, Guidance (ICD-10-PCS; 2019-11-26)
DX: A41.51 Sepsis due to Escherichia coli [E. coli] (principal); J96.01 Acute respiratory failure with hypoxia; N17.0 Acute kidney failure with tubular necrosis; R65.21 Severe sepsis with septic shock; K72.00 Acute and subacute hepatic failure without coma; R57.0 Cardiogenic shock; I21.A1 Myocardial infarction type 2; K57.32 Diverticulitis of large intestine without perforation or abscess without bleeding; E87.1 Hypo-osmolality and hyponatremia; N39.0 Urinary tract infection, site not specified; K81.0 Acute cholecystitis; I25.10 Atherosclerotic heart disease of native coronary artery without angina pectoris; D64.9 Anemia, unspecified; E03.9 Hypothyroidism, unspecified; I13.10 Hypertensive heart and chronic kidney disease without heart failure, with stage 1 through stage 4 chronic kidney disease, or unspecified chronic kidney disease; N18.9 Chronic kidney disease, unspecified; K44.9 Diaphragmatic hernia without obstruction or gangrene; I25.2 Old myocardial infarction; Z95.5 Presence of coronary angioplasty implant and graft; Z95.1 Presence of aortocoronary bypass graft; Z90.79 Acquired absence of other genital organ(s); Z79.82 Long term (current) use of aspirin; Z79.899 Other long term (current) drug therapy; E86.1 Hypovolemia; E83.42 Hypomagnesemia; E87.6 Hypokalemia; K82.8 Other specified diseases of gallbladder; K76.0 Fatty (change of) liver, not elsewhere classified; I70.8 Atherosclerosis of other arteries; I70.0 Atherosclerosis of aorta; G90.8 Other disorders of autonomic nervous system; E87.70 Fluid overload, unspecified; K21.9 Gastro-esophageal reflux disease without esophagitis; H40.9 Unspecified glaucoma
CPT/HCPCS: 36415; 36569; 36600; 71045-TC; 71250-TC; 76700-TC; 76705-TC; 80048-TC; 80053-TC; 80061-TC; 80076-TC; 82272-TC; 82728-TC; 82803-TC; 82962-TC; 83540-TC; 83605-TC; 83735-TC; 83880; 84100-TC; 84484-TC; 85025-TC; 85378-TC; 85610-TC; 85730-TC; 87040-TC; 87081-TC; 87086-TC; 87186-TC; 93307-TC; 93970-TC; 94760-TC; C1751; G0378; J0696; J1250; J1644; J1650; J1940; J2543; J2916; J3475; J3480; J7030; J7040; J7050; J7060

== ENCOUNTER 2021-08-11 16:36 | Inpatient (IN) | payer MEDICARE ==
[~2021-08-11] VITALS: Ht 182.9 cm; Wt 75.9 kg
[~2021-08-11 16:36] MED LIST: ASPI-1169 PO; ATOR40TA PO; CHOL100040 PO; CYAN1TAB9 PO; DOXA4TAB3 PO; FURO-144 PO; LATA2.5D15 EACHEYE; LEVO88TA5 PO; OMEP40CA21 PO; POTA10TA PO; RANO500T6 PO; SULF1TAB48 PO; TELM80TA9 PO; TIMO5DRO35 EACHEYE
--- NOTE | 2021-08-11 16:41 | NUR ---
TO ER BED 4, BIBRA 76 FROM HOME C/O CHEST PAIN PRESSURE LIKE NON RADIATING STARTED YESTERDAY, AAOX3, BREATHING EVEN AND NON LABORED, CONNECTED TO MONITOR, AWAITING MD ORDERS
[2021-08-11] MEDS ORDERED: RANO500T3 PO (16:58)
[2021-08-11] MEDS ORDERED: MAGN250T2 PO (16:58)
[2021-08-11] MEDS ORDERED: MELA5TAB PO (16:58)
[2021-08-11] MEDS ORDERED: ZINC50TA72 PO (16:58)
[2021-08-11] MEDS ORDERED: ALLO100T PO (16:58)
[2021-08-11] MEDS ORDERED: FOLI0.8T2 PO (16:58)
[2021-08-11] MEDS ORDERED: ICOS1CAP PO (16:58)
[2021-08-11] MEDS ORDERED: AMLO-213 PO (16:58)
[2021-08-11] MEDS ORDERED: NITROGLYCERIN PACKET 1 GM PACKET TD ONE (17:00)
[2021-08-11] MEDS ORDERED: NITROGLYCERIN PACKET 1 GM PACKET ONE (17:20)
--- NOTE | 2021-08-11 17:40 | NUR ---
COVID SWABS DONE AND SENT TO LAB
[2021-08-11 17:42] LABS: BASOPHILS % (AUTO) 0.6 % (0.0-2.0); HEMATOCRIT 33 % (39-51); HEMOGLOBIN 11.4 g/dL (13.5-17.5); LYMPHOCYTES # (AUTO) 1.1 K/uL (0.8-4.8); LYMPHOCYTES % (AUTO) 13.6 % (20.0-44.0); MEAN CORPUSCULAR HGB CONC 35 g/dl (31.0-36.0); MEAN CORPUSCULAR VOLUME 99 fL (80-96); MONOCYTES # (AUTO) 0.6 K/uL (0.1-1.30); MONOCYTES % (AUTO) 7.1 % (2.0-12.0); NEUTROPHILS # (AUTO) 6.2 K/uL (1.8-8.9); NEUTROPHILS % (AUTO) 77.7 % (43.0-81.0); PLATELET COUNT (AUTO) 189 K/uL (150-450); RED BLOOD CELL COUNT(AUTO) 3.31 MIL/uL (4.5-6.0)
[2021-08-11 18:17] LABS: CALCIUM, SERUM 8.4 mg/dL (8.5-10.1); CARBON DIOXIDE 23 mmol/L (21-32); CHLORIDE 101 mmol/L (98-107); CREATININE 2.1 mg/dL (0.6-1.3); GLUCOSE 153 mg/dL (74-106); POTASSIUM 4.2 mmol/L (3.5-5.1); SODIUM SERUM 138 mmol/L (136-145); UREA NITROGEN, BLOOD 41 mg/dL (7-18)
[2021-08-11] MEDS ORDERED: FUROSEMIDE 40 MG/4 ML VIAL IV ONE (18:30)
[2021-08-11] MEDS ORDERED: FUROSEMIDE 40 MG/4 ML VIAL ONE (19:17)
[2021-08-11] MEDS ORDERED: ONDANSETRON HCL/PF 4 MG/2 ML VIAL IVP PRN (21:30)
[2021-08-11] MEDS ORDERED: Z GUARD REMEDY 4 OZ OINT TP PRN (21:30)
[2021-08-11] MEDS ORDERED: ZOLPIDEM TARTRATE 5 MG TABLET PO PRN (21:30)
[2021-08-11] MEDS ORDERED: ACETAMINOPHEN 325 MG TABLET PO PRN (21:30)
[2021-08-11] MEDS ORDERED: MAG HYDROX/AL HYDROX/SIMETH 30 ML UDC PO PRN (21:30)
[2021-08-11] MEDS ORDERED: MAGNESIUM HYDROXIDE 30 ML UDC PO PRN (21:30)
--- NOTE | 2021-08-12 04:21 | NUR ---
PATIENT RESTING COMFORTABLY NO COMPLAITNS AT THIS TIME.
--- NOTE | 2021-08-12 04:49 | NUR ---
PT WAS NOTED SATTING @ 90-93% ON NON REBREATHER @ 15LPM. PT IS NOTED WITH WET COUGH AND GET AGGREVATED WHEN HE LIES DOWN. CURLY ARAUJO WAS INFORMED AND RECEIVED AN ORDER TO GIVE LASIX 40MG IVP X 1. NOTED AND CARRIED OUT
[2021-08-12] MEDS ORDERED: FUROSEMIDE 40 MG/4 ML VIAL ONE (04:55)
[2021-08-12] MEDS ORDERED: FUROSEMIDE 20 MG/2 ML VIAL IV SCH ×2 (05:00→09:00)
[2021-08-12] MEDS: LEVOTHYROXINE SODIUM 88 MCG TABLET PO SCH (07:30)
[2021-08-12] MEDS ORDERED: PANTOPRAZOLE 40 MG TABLET.DR PO SCH (07:30)
--- NOTE | 2021-08-12 07:38 | NUR ---
ASSESSED PT ON BED ASLEEP, EASILY AROUSABLE. NOT IN RESPIRATORY DISTRESS, V/S STABLE, KEPT RESTED AND COMFORTABLE. WILL CONTINUE TO MONITOR.
[2021-08-12] MEDS ORDERED: LEVOTHYROXINE SODIUM 100 MCG TABLET ONE (07:42)
[2021-08-12] MEDS ORDERED: PANTOPRAZOLE 40 MG TABLET.DR PO ONE (07:42)
[2021-08-12 07:49] LABS: CALCIUM, SERUM 8.6 mg/dL (8.5-10.1); CARBON DIOXIDE 21 mmol/L (21-32); CHLORIDE 100 mmol/L (98-107); GLUCOSE 164 mg/dL (74-106); MAGNESIUM 1.3 mg/dL (1.8-2.4); PHOSPHORUS 4.3 mg/dL (2.5-4.9); POTASSIUM 3.7 mmol/L (3.5-5.1); SODIUM SERUM 138 mmol/L (136-145); UREA NITROGEN, BLOOD 39 mg/dL (7-18)
[2021-08-12 07:55] LABS: BASOPHILS # (AUTO) 0.1 K/uL (0.0-0.2); BASOPHILS % (AUTO) 0.5 % (0.0-2.0); EOSINOPHILS % (AUTO) 0.1 % (0.0-6.0); HEMATOCRIT 32 % (39-51); HEMOGLOBIN 11.7 g/dL (13.5-17.5); LYMPHOCYTES # (AUTO) 0.6 K/uL (0.8-4.8); LYMPHOCYTES % (AUTO) 6.3 % (20.0-44.0); MEAN CORPUSCULAR HGB CONC 36 g/dl (31.0-36.0); MEAN CORPUSCULAR VOLUME 99 fL (80-96); MONOCYTES # (AUTO) 0.6 K/uL (0.1-1.30); MONOCYTES % (AUTO) 5.8 % (2.0-12.0); NEUTROPHILS % (AUTO) 87.3 % (43.0-81.0); PLATELET COUNT (AUTO) 189 K/uL (150-450); RED BLOOD CELL COUNT(AUTO) 3.28 MIL/uL (4.5-6.0); WHITE BLOOD COUNT (AUTO) 10.4 K/uL (4.3-11.0)
[2021-08-12] MEDS ORDERED: FUROSEMIDE 40 MG/4 ML VIAL IV SCH (09:00)
[2021-08-12] MEDS ORDERED: Medication Not On Formulary EA (Icosapent Ethyl (Vascepa) 2 GM) PO SCH (09:00)
[2021-08-12] MEDS: RANOLAZINE 500 MG TAB.ER.12H PO SCH ×2 (09:15→21:10)
[2021-08-12] MEDS: VIT B CMPLX 3/FA/VIT C/BIOTIN 1 TAB TABLET PO SCH (09:15)
[2021-08-12] MEDS ORDERED: CHOLECALCIFEROL 1,000 UNIT TABLET (VIT D3) ONE ×2 (09:16→09:18)
[2021-08-12] MEDS: CHOLECALCIFEROL 1,000 UNIT TABLET (VIT D3) PO SCH (09:16)
[2021-08-12] MEDS ORDERED: FUROSEMIDE 100 MG/10 ML VIAL ONE (09:23)
[2021-08-12 09:50] LABS: THYROID STIMULATING HORMONE 3.242 uIU/mL (0.358-3.74)
--- NOTE | 2021-08-12 10:29 | NUR ---
ER PHLEB AT BEDSIDE FOR BLOOD DRAW.
[2021-08-12 10:54] LABS: ABG BASE EXCESS 1.3 mmol/L; ABG PCO2 33.5 mmHg (35.0-45.0); ABG PO2 84.7 mmHg (75.0-100.0); COHb 0.3 % (0.5-1.5); MetHb 0.3 % (0.0-1.5); O2Hb 95.2 % (94.0-97.0); SITE, ABG Left Brachial; VENT MODE, BG NRB MASK
[2021-08-12 11:10] LABS: CHOLESTEROL 228 mg/dL (<200); HDL CHOLESTEROL 58 mg/dL (40-60); LDL 145 mg/dL (0-99); TRIGLYCERIDES 90 mg/dL (30-150)
[2021-08-12] MEDS ORDERED: MAGNESIUM OXIDE 400 MG TABLET PO ONE (12:00)
[2021-08-12] MEDS ORDERED: HEPARIN INFUSION/D5W 500 ML IV ONE (12:08)
[2021-08-12] MEDS ORDERED: HEPARIN SODIUM, PORCINE 5000 UNITS/1 ML VIAL ONE (12:08)
--- NOTE | 2021-08-12 12:20 | NUR ---
HEPARIN 6000 UNITS BOLUS GIVEN ORDERED BY .
[2021-08-12] MEDS: HEPARIN INFUSION/D5W 500 ML IV PRN (12:26)
[2021-08-12] MEDS ORDERED: HEPARIN SODIUM, PORCINE 5000 UNITS/1 ML VIAL IV ONE (12:30)
--- NOTE | 2021-08-12 12:48 | NUR ---
PATIENT SEEN BY VANE PATEL
--- NOTE | 2021-08-12 15:12 | NUR ---
ITALIA, DAUGHTER, CALLED
--- NOTE | 2021-08-12 16:10 | NUR ---
MIDLINE RN AT BEDSIDE.
[2021-08-12] MEDS ORDERED: ASPIRIN 81 MG TAB.CHEW ONE (17:08)
[2021-08-12] MEDS ORDERED: TIMOLOL 0.5% SOLN OPHTH 5 ML BOTTLE ONE (17:08)
[2021-08-12] MEDS ORDERED: AMLODIPINE BESYLATE 5 MG TABLET ONE (17:08)
[2021-08-12] MEDS: TIMOLOL 0.5% SOLN OPHTH 5 ML BOTTLE EACHEYE SCH (17:09)
[2021-08-12] MEDS ORDERED: Medication Not On Formulary EA (Melatonin 10 MG) PO SCH (18:00)
[2021-08-12] MEDS: LATANOPROST EYE DROP 0.005% 2.5 ML BOTTLE EACHEYE SCH (18:01)
[2021-08-12] MEDS: FUROSEMIDE 100 MG in IV NS 0.9% 90 ML IV SCH (18:02)
[2021-08-12] MEDS: AMLODIPINE BESYLATE 5 MG TABLET PO SCH (18:03)
[2021-08-12] MEDS: ASPIRIN 81 MG TAB.CHEW PO SCH (18:03)
[2021-08-12] MEDS: DOXAZOSIN MESYLATE (4 MG) 4 MG TABLET PO SCH (18:03)
--- NOTE | 2021-08-12 18:24 | NUR ---
CALLED LAB FOR REPEAT COAG'S 6 HOURS FROM THE START OF HEPARIN DRIP.
--- NOTE | 2021-08-12 20:30 | NUR ---
PT RESTING COMFORTABLY V/S STABLE WILL CONT. TO MONITOR PT.
[2021-08-12] MEDS ORDERED: ATORVASTATIN 40 MG TABLET ONE (21:06)
[2021-08-12] MEDS: ATORVASTATIN 40 MG TABLET PO SCH (21:10)
--- NOTE | 2021-08-13 00:05 | NUR ---
CAN DRYER AT BEDSIDE FOR LAB DRAW
[2021-08-13 06:18] LABS: CHLORIDE 97 mmol/L (98-107); POTASSIUM 3.3 mmol/L (3.5-5.1); SODIUM SERUM 136 mmol/L (136-145)
[2021-08-13 06:19] LABS: CARBON DIOXIDE 30 mmol/L (21-32); GLUCOSE 121 mg/dL (74-106)
[2021-08-13 06:20] LABS: CALCIUM, SERUM 8.6 mg/dL (8.5-10.1); CREATININE 1.9 mg/dL (0.6-1.3); UREA NITROGEN, BLOOD 35 mg/dL (7-18)
[2021-08-13 06:21] LABS: ALANINE AMINOTRANSFERASE 21 U/L (12-78); ALBUMIN 2.9 g/dL (3.4-5.0); ALKALINE PHOSPHATASE 65 U/L (46-116); ASPARTATE AMINOTRANSFERASE 18 U/L (15-37); BILIRUBIN,TOTAL 1.2 mg/dL (0.2-1.0)
[2021-08-13 06:22] LABS: MAGNESIUM 1.5 mg/dL (1.8-2.4); TOTAL PROTEIN, SERUM 7.6 g/dL (6.4-8.2)
[2021-08-13 06:42] LABS: BASOPHILS % (AUTO) 0.4 % (0.0-2.0); EOSINOPHILS % (AUTO) 0.5 % (0.0-6.0); HEMATOCRIT 34 % (39-51); LYMPHOCYTES # (AUTO) 0.8 K/uL (0.8-4.8); LYMPHOCYTES % (AUTO) 8.5 % (20.0-44.0); MEAN CORPUSCULAR HGB CONC 35 g/dl (31.0-36.0); MEAN CORPUSCULAR VOLUME 99 fL (80-96); MONOCYTES # (AUTO) 0.7 K/uL (0.1-1.30); MONOCYTES % (AUTO) 6.8 % (2.0-12.0); NEUTROPHILS # (AUTO) 8.2 K/uL (1.8-8.9); NEUTROPHILS % (AUTO) 83.8 % (43.0-81.0); PLATELET COUNT (AUTO) 194 K/uL (150-450); RED BLOOD CELL COUNT(AUTO) 3.46 MIL/uL (4.5-6.0); WHITE BLOOD COUNT (AUTO) 9.8 K/uL (4.3-11.0)
--- NOTE | 2021-08-13 07:00 | NUR ---
PT VOIDED A TOTAL OF 900 ML OF URINE IN 12 HRS. PT REMAINS IN STABLE CONDITION AWAITING FOR INPATIENT BED
[2021-08-13] MEDS ORDERED: ZINC SULFATE 220 MG CAPSULE ONE (08:15)
[2021-08-13] MEDS ORDERED: CHOLECALCIFEROL 1,000 UNIT TABLET (VIT D3) ONE (08:15)
[2021-08-13] MEDS: CHOLECALCIFEROL 1,000 UNIT TABLET (VIT D3) PO SCH (08:41)
[2021-08-13] MEDS: TIMOLOL 0.5% SOLN OPHTH 5 ML BOTTLE EACHEYE SCH ×2 (08:41→17:05)
[2021-08-13] MEDS: VIT B CMPLX 3/FA/VIT C/BIOTIN 1 TAB TABLET PO SCH (08:41)
[2021-08-13] MEDS: RANOLAZINE 500 MG TAB.ER.12H PO SCH ×2 (08:41→20:45)
[2021-08-13] MEDS: MAGNESIUM OXIDE 400 MG TABLET PO SCH (08:41)
[2021-08-13] MEDS: LEVOTHYROXINE SODIUM 88 MCG TABLET PO SCH (08:41)
[2021-08-13] MEDS: ZINC SULFATE 220 MG CAPSULE PO SCH (08:41)
[2021-08-13] MEDS ORDERED: POTASSIUM CHLORIDE 20 MEQ TAB.PRT.SR PO ONE ×2 (10:00→10:20)
[2021-08-13] MEDS: METOLAZONE 2.5 MG TABLET PO SCH (10:22)
[2021-08-13] MEDS: FUROSEMIDE 100 MG in IV NS 0.9% 90 ML IV SCH (14:11)
[2021-08-13] MEDS: AMLODIPINE BESYLATE 5 MG TABLET PO SCH (18:11)
[2021-08-13] MEDS: DOXAZOSIN MESYLATE (4 MG) 4 MG TABLET PO SCH (18:11)
[2021-08-13] MEDS: ASPIRIN 81 MG TAB.CHEW PO SCH (18:11)
[2021-08-13] MEDS ORDERED: AMLODIPINE BESYLATE 5 MG TABLET ONE (18:20)
[2021-08-13] MEDS ORDERED: ASPIRIN EC 81 MG TABLET.DR PO ONE (18:20)
[2021-08-13] MEDS: LATANOPROST EYE DROP 0.005% 2.5 ML BOTTLE EACHEYE SCH (18:23)
[2021-08-13 20:00] VITALS: BP 140/73
--- NOTE | 2021-08-13 22:17 | NUR ---
PT. got a room 204-1
--- NOTE | 2021-08-13 22:29 | NUR ---
CALLED FOR REPORT. NURSE UNAVAILABLE AND WILL CALL BACK.
--- NOTE | 2021-08-13 22:34 | NUR ---
RN notes Received report from ER nurse YOEL Walker.
--- NOTE | 2021-08-13 22:34 | NUR ---
REPORT GIVEN TO EDUARDO
--- NOTE | 2021-08-13 23:21 | NUR ---
pt transported to room 204-1 on sports centre manager per acls protocol with lasix infusing at 5ml/hr
--- NOTE | 2021-08-13 23:30 | NUR ---
truck driver helper notes Received Pt from ER nurse. Pt is alert and orientedX3. Pt speaks Polish and able to make needs known. Respiration on 15 L non rebreather mask. No SOB. No S/S of distress noted. tele monitor showed SR. IV site at L hand is intact and infusing well lasix at 5 ml/hr. JESUS MANUEL midline is intact, flushes well and SL. Reorient Pt to the room and the use of call light. Skin assessment is done and performed. Skin is intact. Safety precautions is maintained and call light is within reach. Will continue to monitor.
[2021-08-14] VITALS: BP 144/67
--- NOTE | 2021-08-14 02:51 | NUR ---
RN notes Called and verify regarding Heparin drip. Pt came without heparin drip infusing only lasix infusing. Notify and informed charge nurse YOEL Che. Charge nurse stated continue heparin drip as MD ordered. Called and spoke with YOEL Loving, ER nurse to informed that ER nurse YOEL Walker came only with lasix infusing. YOEL Loving states to continue heparin drip as ordered.
--- NOTE | 2021-08-14 03:21 | NUR ---
RN notes Called and spoke with Bob, lab techician to get STAT PT, PTT and INR. Bob stated we only have 1 phelotomist. Awaiting for phelotomist to come.
[2021-08-14 04:00] VITALS: BP 110/53
--- NOTE | 2021-08-14 05:04 | NUR ---
RN notes Informed and notified MD regarding LAb result for PT 10.7 INR 1.02 AND PTT 30.8. MD ordered to continue heparin drip at 24 ml/hr. Order carried out.
--- NOTE | 2021-08-14 05:13 | NUR ---
RN notes PT, INR AND PTT IN 6 hours.
[2021-08-14] MEDS: HEPARIN INFUSION/D5W 500 ML IV PRN (05:23)
--- NOTE | 2021-08-14 05:23 | NUR ---
RN notes Heparin infusion started at 24ml/hr per MD ordered. cosigned with YOEL Garcia. Charge nurse is aware and informed.
--- NOTE | 2021-08-14 06:30 | NUR ---
RN closing notes Pt is resting in bed comfortably. Pt is alert and orientedX3. Respiration on 15 L non rebreather mask. No SOB. No S/S of distress noted. tele monitor showed SR. IV site at L hand is intact and infusing well lasix at 5 ml/hr. JESUS MANUEL midline is intact and infusing well heparin drip at 24 ml/hr. Safety precautions is maintained and call light is within reach. Will endorse to am nurse for CULLEN.
--- NOTE | 2021-08-14 07:35 | NUR ---
RN OPENING NOTE- PT IN BED AWAKE WATCHING TV, AOX4, MAKES NEEDS KNOWN, SLIGHT CONFUSION AT TIMES. VOIDING IN URINAL. HEPARIN DRIP AT 24ML/HR TO MIDLINE JESUS MANUEL. LASIX DRIP TO LT HAND 20G SL. SIDE RAILS UP, BED ALARM ON, BED LOCKED. CALL LIGHT IN REACH . MONITOR / ASSIST
[2021-08-14] MEDS: LEVOTHYROXINE SODIUM 88 MCG TABLET PO SCH (07:53)
[2021-08-14] MEDS: METOLAZONE 2.5 MG TABLET PO SCH (09:00)
[2021-08-14 09:11] LABS: BASOPHILS % (AUTO) 0.4 % (0.0-2.0); EOSINOPHILS % (AUTO) 2.1 % (0.0-6.0); HEMATOCRIT 33 % (39-51); HEMOGLOBIN 11.3 g/dL (13.5-17.5); LYMPHOCYTES # (AUTO) 1.1 K/uL (0.8-4.8); LYMPHOCYTES % (AUTO) 13.1 % (20.0-44.0); MEAN CORPUSCULAR HGB CONC 35 g/dl (31.0-36.0); MEAN CORPUSCULAR VOLUME 99 fL (80-96); MONOCYTES # (AUTO) 0.6 K/uL (0.1-1.30); MONOCYTES % (AUTO) 6.8 % (2.0-12.0); NEUTROPHILS # (AUTO) 6.8 K/uL (1.8-8.9); NEUTROPHILS % (AUTO) 77.6 % (43.0-81.0); PLATELET COUNT (AUTO) 200 K/uL (150-450); RED BLOOD CELL COUNT(AUTO) 3.28 MIL/uL (4.5-6.0); WHITE BLOOD COUNT (AUTO) 8.7 K/uL (4.3-11.0)
[2021-08-14 09:16] LABS: ALANINE AMINOTRANSFERASE 23 U/L (12-78); ALBUMIN 2.8 g/dL (3.4-5.0); ALKALINE PHOSPHATASE 66 U/L (46-116); ASPARTATE AMINOTRANSFERASE 19 U/L (15-37); BILIRUBIN,TOTAL 0.7 mg/dL (0.2-1.0); CALCIUM, SERUM 8.4 mg/dL (8.5-10.1); CARBON DIOXIDE 30 mmol/L (21-32); CHLORIDE 95 mmol/L (98-107); CREATININE 2.2 mg/dL (0.6-1.3); GLUCOSE 101 mg/dL (74-106); MAGNESIUM 1.5 mg/dL (1.8-2.4); PHOSPHORUS 4.1 mg/dL (2.5-4.9); POTASSIUM 3.3 mmol/L (3.5-5.1); SODIUM SERUM 135 mmol/L (136-145); TOTAL PROTEIN, SERUM 7.3 g/dL (6.4-8.2); UREA NITROGEN, BLOOD 50 mg/dL (7-18)
[2021-08-14] MEDS: CHOLECALCIFEROL 1,000 UNIT TABLET (VIT D3) PO SCH (09:33)
[2021-08-14] MEDS: ZINC SULFATE 220 MG CAPSULE PO SCH (09:33)
[2021-08-14] MEDS: ENOXAPARIN SODIUM 30 MG/0.3 ML DISP.SYRIN SQ SCH (09:33)
[2021-08-14] MEDS: VIT B CMPLX 3/FA/VIT C/BIOTIN 1 TAB TABLET PO SCH (09:33)
[2021-08-14] MEDS: RANOLAZINE 500 MG TAB.ER.12H PO SCH ×2 (09:34→21:29)
[2021-08-14] MEDS: MAGNESIUM OXIDE 400 MG TABLET PO SCH (09:34)
[2021-08-14] MEDS: TIMOLOL 0.5% SOLN OPHTH 5 ML BOTTLE EACHEYE SCH ×2 (09:34→17:15)
[2021-08-14] MEDS: FUROSEMIDE 100 MG in IV NS 0.9% 90 ML IV SCH (09:37)
--- NOTE | 2021-08-14 10:14 | NUR ---
RN NOTE- HEPARIN STOPPED PER DR ARNDT. DR MOODY ORDERED TO REMOVE HI FLOW O2 AND START 02 VIA NC AT 8 LPM . MONITORING SATURATION
--- NOTE | 2021-08-14 11:00 | NUR ---
RN NOTE- PT DESAT AT 8LPM VIA NC. REPLACED NON REBREATHER AT 15LPM. SATS 97%
--- NOTE | 2021-08-14 14:00 | NUR ---
RN NOTE- DC NON REBREATHER. SIMPLE MASK INITIATED AT 10 LPM. SATS AT 95%
[2021-08-14] MEDS ORDERED: Magnesium 1GM/D5W 100ML PREMIX 100 ML IV SCH (14:30)
[2021-08-14] MEDS: POTASSIUM CL. PREMIX PERIPHER. 50 ML IV SCH ×2 (14:43→15:36)
--- NOTE | 2021-08-14 16:38 | NUR ---
RN NOTE- TITRATED O2 DOWN FROM 10 LPM TO 8 LPM. SATURATION 95%
[2021-08-14] MEDS: DOXAZOSIN MESYLATE (4 MG) 4 MG TABLET PO SCH (17:16)
[2021-08-14] MEDS: AMLODIPINE BESYLATE 5 MG TABLET PO SCH (17:16)
[2021-08-14] MEDS: ASPIRIN 81 MG TAB.CHEW PO SCH (17:16)
[2021-08-14] MEDS ORDERED: LATANOPROST EYE DROP 0.005% 2.5 ML BOTTLE EACHEYE SCH (18:09)
--- NOTE | 2021-08-14 19:30 | NUR ---
ART DEPARTMENT HEAD OPENING RECEIVED PATIENT IN BED. A/OX4. NO S/S OF APPARENT DISTRESS ON SIMPLE MASK 8LPM OF O2. DENIES PAIN. IV LASIX RUNNING AT 5CC/HR. TELE MONITOR READING SR IN THE 70'S. SAFETY IN PLACE. ISOLATION PROTOCOL IN PLACE. WILL CONTINUE WITH PATIENT CARE PLAN.
[2021-08-14 20:00] VITALS: BP 142/75
[2021-08-14] MEDS: ATORVASTATIN 40 MG TABLET PO SCH (21:29)
[2021-08-14] MEDS: LATANOPROST EYE DROP 0.005% 2.5 ML BOTTLE EACHEYE SCH (21:29)
[2021-08-15] VITALS: BP 122/56
--- NOTE | 2021-08-15 07:44 | NUR ---
MS RN CLOSING REPORT GIVEN TO AUBURN FOR CONTINUITY OF CARE.
--- NOTE | 2021-08-15 07:50 | NUR ---
ms rn received on bed, awake,alert,oriented x4,not in any form of distress, respirations even and unlabored,no sob noted,patient denies pain at this time,all needs attended.
[2021-08-15 08:00] VITALS: BP 141/82
--- NOTE | 2021-08-15 10:00 | NUR ---
ms hensley breakfast served,due meds given,tolerated well.
[2021-08-15] MEDS: ZINC SULFATE 220 MG CAPSULE PO SCH (10:53)
[2021-08-15] MEDS: MAGNESIUM OXIDE 400 MG TABLET PO SCH (10:53)
[2021-08-15] MEDS: RANOLAZINE 500 MG TAB.ER.12H PO SCH ×2 (10:53→22:20)
[2021-08-15] MEDS: FUROSEMIDE 40 MG/4 ML VIAL IV SCH ×2 (10:53→17:03)
[2021-08-15] MEDS: ASPIRIN 81 MG TAB.CHEW PO SCH ×2 (10:53→17:02)
[2021-08-15] MEDS: VIT B CMPLX 3/FA/VIT C/BIOTIN 1 TAB TABLET PO SCH (10:53)
[2021-08-15] MEDS: LEVOTHYROXINE SODIUM 88 MCG TABLET PO SCH (10:53)
[2021-08-15] MEDS: CHOLECALCIFEROL 1,000 UNIT TABLET (VIT D3) PO SCH (10:53)
[2021-08-15] MEDS: TIMOLOL 0.5% SOLN OPHTH 5 ML BOTTLE EACHEYE SCH ×3 (10:54→22:20)
[2021-08-15] MEDS: ENOXAPARIN SODIUM 30 MG/0.3 ML DISP.SYRIN SQ SCH (10:55)
--- NOTE | 2021-08-15 13:00 | NUR ---
ms rn on bed, no distress noted.
[2021-08-15 16:28] LABS: CALCIUM, SERUM 8.7 mg/dL (8.5-10.1); CARBON DIOXIDE 33 mmol/L (21-32); CHLORIDE 93 mmol/L (98-107); CREATININE 2.6 mg/dL (0.6-1.3); GLUCOSE 150 mg/dL (74-106); POTASSIUM 3.2 mmol/L (3.5-5.1); SODIUM SERUM 135 mmol/L (136-145); UREA NITROGEN, BLOOD 73 mg/dL (7-18)
[2021-08-15] MEDS: AMLODIPINE BESYLATE 5 MG TABLET PO SCH (17:03)
[2021-08-15] MEDS: DOXAZOSIN MESYLATE (4 MG) 4 MG TABLET PO SCH (17:03)
--- NOTE | 2021-08-15 18:00 | NUR ---
ms rn called daughter for update, holding heart cath tomorrow,will call first his primary doctor,no distress noted.
[2021-08-15] MEDS ORDERED: POTASSIUM CHLORIDE 20 MEQ TAB.PRT.SR PO SCH (19:00)
--- NOTE | 2021-08-15 19:00 | NUR ---
MS RN OPENING NOTE PT A/O X4 RESTING COMFORTABLY IN BED. SAFETY PRECAUTIONS IN PLACE. NO C/O PAIN AT THIS MOMENT. WILL CONTINUE WITH PLAN OF CARE.
[2021-08-15 20:00] VITALS: BP 141/67
[2021-08-15] MEDS: LATANOPROST EYE DROP 0.005% 2.5 ML BOTTLE EACHEYE SCH (22:22)
[2021-08-16] VITALS: BP 121/77
[2021-08-16 04:00] VITALS: BP 129/64
--- NOTE | 2021-08-16 06:30 | NUR ---
MS RN CLOSING NOTE PT RESTING COMFORTABLY IN BED. NEEDS MET AND MEDICATIONS ADMINISTERED. WILL ENDORSE TO ONCOMING RN FOR CULLEN. Addendum: 08/16/21 at 0741 by LAZARUS FONSECA RN MS RN CLOSING NOTE PT RESTING COMFORTABLY IN BED. PT ON EXTERNAL CASINO CASHIER SR @ 77. NEEDS MET AND MEDICATIONS ADMINISTERED. WILL ENDORSE TO ONCOMING RN FOR CULLEN.
--- NOTE | 2021-08-16 07:22 | NUR ---
HIDE CLEANER OPENING RECEIVED PATIENT IN BED. A/OX4. PATIENT IS BREATHING EVENLY AND NONLABORED NO S/S OF APPARENT DISTRESS ON SIMPLE MASK 8LPM OF O2. DENIES PAIN. IV ACCESS NOTED TO JESUS MANUEL MIDLINE, TELE MONITOR READING SR IN THE 70'S. SAFETY IN PLACE. ISOLATION PROTOCOL IN PLACE. WILL CONTINUE TO MONITOR.
[2021-08-16] MEDS: CHOLECALCIFEROL 1,000 UNIT TABLET (VIT D3) PO SCH (08:18)
[2021-08-16] MEDS: MAGNESIUM OXIDE 400 MG TABLET PO SCH (08:18)
[2021-08-16] MEDS: ZINC SULFATE 220 MG CAPSULE PO SCH (08:18)
[2021-08-16] MEDS: LEVOTHYROXINE SODIUM 88 MCG TABLET PO SCH (08:18)
[2021-08-16] MEDS: VIT B CMPLX 3/FA/VIT C/BIOTIN 1 TAB TABLET PO SCH (08:18)
[2021-08-16] MEDS: TIMOLOL 0.5% SOLN OPHTH 5 ML BOTTLE EACHEYE SCH (08:19)
[2021-08-16] MEDS: ENOXAPARIN SODIUM 30 MG/0.3 ML DISP.SYRIN SQ SCH (08:19)
[2021-08-16] MEDS: RANOLAZINE 500 MG TAB.ER.12H PO SCH (08:19)
[2021-08-16] MEDS ORDERED: FUROSEMIDE 40 MG TABLET PO SCH (09:00)
[2021-08-16] MEDS ORDERED: FURO40TA5 PO (10:08)
[2021-08-16 10:47] LABS: ALANINE AMINOTRANSFERASE 34 U/L (12-78); ALBUMIN 3.4 g/dL (3.4-5.0); ALKALINE PHOSPHATASE 85 U/L (46-116); ASPARTATE AMINOTRANSFERASE 22 U/L (15-37); BILIRUBIN,TOTAL 0.7 mg/dL (0.2-1.0); CALCIUM, SERUM 9.3 mg/dL (8.5-10.1); CARBON DIOXIDE 36 mmol/L (21-32); CHLORIDE 92 mmol/L (98-107); CREATININE 2.3 mg/dL (0.6-1.3); GLUCOSE 141 mg/dL (74-106); MAGNESIUM 1.9 mg/dL (1.8-2.4); PHOSPHORUS 4.6 mg/dL (2.5-4.9); POTASSIUM 3.3 mmol/L (3.5-5.1); SODIUM SERUM 135 mmol/L (136-145); TOTAL PROTEIN, SERUM 8.7 g/dL (6.4-8.2)
[2021-08-16 10:49] LABS: BASOPHILS % (AUTO) 0.6 % (0.0-2.0); EOSINOPHILS % (AUTO) 2.7 % (0.0-6.0); HEMATOCRIT 39 % (39-51); HEMOGLOBIN 13.4 g/dL (13.5-17.5); LYMPHOCYTES # (AUTO) 1.1 K/uL (0.8-4.8); LYMPHOCYTES % (AUTO) 17.8 % (20.0-44.0); MEAN CORPUSCULAR HGB CONC 35 g/dl (31.0-36.0); MEAN CORPUSCULAR VOLUME 98 fL (80-96); MONOCYTES # (AUTO) 0.5 K/uL (0.1-1.30); MONOCYTES % (AUTO) 8.6 % (2.0-12.0); NEUTROPHILS # (AUTO) 4.5 K/uL (1.8-8.9); NEUTROPHILS % (AUTO) 70.3 % (43.0-81.0); PLATELET COUNT (AUTO) 271 K/uL (150-450); RED BLOOD CELL COUNT(AUTO) 3.95 MIL/uL (4.5-6.0); WHITE BLOOD COUNT (AUTO) 6.4 K/uL (4.3-11.0)
[2021-08-16 11:30] LABS: UREA NITROGEN, BLOOD 80 mg/dL (7-18)
--- NOTE | 2021-08-16 11:35 | NUR ---
RN NOTE RELAYED CRITICAL LAB VALUE TO MD STATED TO INSTRUCT PATIENT TO FOLLOW UP WITH PCP TO HAVE F/U LABS AND TO HOLD LASIX TILL THEN. PATIENT VERBALIZED UNDERSTANDING
--- NOTE | 2021-08-16 12:40 | NUR ---
NEWSPAPER DELIVERY DRIVER NOTE RECEIVED DISCHARGE ORDER. PATIENT IS A/O X4. PATIENT IS BREATHING EVENLY AND NONLABORED ON ROOM AIR. PATIENT DENIES PAIN OR DISCOMFORT AT THIS TIME. PATIENT WAS GIVEN DISCHARGE INSTRUCTIONS BOTH VERBALLY AND IN WRITTEN FORM, PATIENT VERBALIZED UNDERSTANDING. IV ACCESS REMOVED NO BLEEDING NOTED. ALL BELONGINGS TAKEN WITH PATIENT, BELONGINGS FORM SIGNED. PATIENT LEFT IN STABLE CONDITION VIA PRIVATE CAR.
== END 2021-08-16 12:00 | disposition home or self-care (01) | DRG 280 ==
LOC: ER 16:54 → TRANSITION 20:58 → TELE2 08-13 22:20 → MEDSG2 08-16 10:28
PROVIDERS: ADMIT Family Medicine; ATTEND Internal Medicine
PROC: 05HC33Z Insertion of Infusion Device into Left Basilic Vein, Percutaneous Approach (ICD-10-PCS; principal; 2021-08-12)
DX: I13.0 Hypertensive heart and chronic kidney disease with heart failure and stage 1 through stage 4 chronic kidney disease, or unspecified chronic kidney disease (principal); I21.A1 Myocardial infarction type 2; I50.33 Acute on chronic diastolic (congestive) heart failure; N17.0 Acute kidney failure with tubular necrosis; J96.01 Acute respiratory failure with hypoxia; E03.9 Hypothyroidism, unspecified; Z95.1 Presence of aortocoronary bypass graft; Z20.822 Contact with and (suspected) exposure to COVID-19; I25.10 Atherosclerotic heart disease of native coronary artery without angina pectoris; N18.30 Chronic kidney disease, stage 3 unspecified; Z79.82 Long term (current) use of aspirin; Z79.899 Other long term (current) drug therapy; I25.2 Old myocardial infarction; K76.0 Fatty (change of) liver, not elsewhere classified; E78.5 Hyperlipidemia, unspecified; H40.9 Unspecified glaucoma; K21.9 Gastro-esophageal reflux disease without esophagitis; M10.9 Gout, unspecified; Z87.891 Personal history of nicotine dependence
CPT/HCPCS: 36415; 36600; 71045-TC; 80048-TC; 80053-TC; 80061-TC; 82728-TC; 83540-TC; 83735-TC; 83880; 84100-TC; 84439-TC; 84443-TC; 84484-TC; 85025-TC; 85610-TC; 85730-TC; 87081-TC; 93307-TC; C9803; G0378; J1644; J1650; J1940; J2405; J3480; J7030; J7040; U0003

== ENCOUNTER 2022-11-21 16:00 | Inpatient (IN) | payer MEDICARE, OTHER ==
[~2022-11-21] VITALS: Ht 170.2 cm; Wt 76.2 kg
[~2022-11-21 16:00] MED LIST changes: +ALLO100T PO; +AMLO-213 PO; -CYAN1TAB9 PO; +FOLI0.8T2 PO; -FURO-144 PO; +FURO40TA5 PO; +ICOS1CAP PO; +MAGN250T2 PO; +MELA5TAB PO; -POTA10TA PO; +RANO500T3 PO; -RANO500T6 PO; -SULF1TAB48 PO; -TELM80TA9 PO; +ZINC50TA72 PO
--- NOTE | 2022-11-21 16:05 | NUR ---
REceived pt came by hayden c/o syncopy and dizzness awake and faloow command no weekness on nubness
--- NOTE | 2022-11-21 16:15 | NUR ---
Seen by DR.. Roger blood drow and sent to lab
--- NOTE | 2022-11-21 16:30 | NUR ---
BLOOD DROW AND SENT TO LAB
[2022-11-21] MEDS ORDERED: RANO10005 PO (16:54)
[2022-11-21] MEDS ORDERED: BUME1TAB8 PO (16:54)
[2022-11-21] MEDS ORDERED: ESOM40CA52 PO (16:54)
[2022-11-21] MEDS ORDERED: METO25TA4 PO (16:54)
[2022-11-21] MEDS ORDERED: CLON0.1T PO (16:54)
[2022-11-21] MEDS ORDERED: RIVA2.5T PO (16:54)
[2022-11-21] MEDS ORDERED: IV NS 0.9% 500 ML BAG IV ONE (17:00)
[2022-11-21 17:17] LABS: BASOPHILS # (AUTO) 0.1 K/uL (0.0-0.2); BASOPHILS % (AUTO) 0.7 % (0.0-2.0); EOSINOPHILS % (AUTO) 1.4 % (0.0-6.0); HEMATOCRIT 40 % (39-51); HEMOGLOBIN 13.4 g/dL (13.5-17.5); LYMPHOCYTES # (AUTO) 1.1 K/uL (0.8-4.8); LYMPHOCYTES % (AUTO) 13.4 % (20.0-44.0); MEAN CORPUSCULAR HGB CONC 33 g/dl (31.0-36.0); MEAN CORPUSCULAR VOLUME 101 fL (80-96); MONOCYTES # (AUTO) 0.5 K/uL (0.1-1.30); NEUTROPHILS # (AUTO) 6.2 K/uL (1.8-8.9); NEUTROPHILS % (AUTO) 78.5 % (43.0-81.0); PLATELET COUNT (AUTO) 203 K/uL (150-450); RED BLOOD CELL COUNT(AUTO) 3.98 MIL/uL (4.5-6.0); WHITE BLOOD COUNT (AUTO) 7.9 K/uL (4.3-11.0)
--- NOTE | 2022-11-21 18:00 | NUR ---
COMPLET IVF DONE
--- NOTE | 2022-11-21 18:07 | NUR ---
RESTING ANSD COMFORTABLE AT THIS TIME
[2022-11-21 18:15] LABS: ALANINE AMINOTRANSFERASE 26 U/L (12-78); ALBUMIN 3.9 g/dL (3.4-5.0); ALKALINE PHOSPHATASE 82 U/L (46-116); ASPARTATE AMINOTRANSFERASE 22 U/L (15-37); BILIRUBIN,DIRECT 0.1 mg/dL (0.0-0.2); BILIRUBIN,TOTAL 0.5 mg/dL (0.2-1.0); CALCIUM, SERUM 9.1 mg/dL (8.5-10.1); CARBON DIOXIDE 25 mmol/L (21-32); CHLORIDE 101 mmol/L (98-107); CREATININE 2.4 mg/dL (0.6-1.3); GLUCOSE 115 mg/dL (74-106); POTASSIUM 4.6 mmol/L (3.5-5.1); SODIUM SERUM 137 mmol/L (136-145); TOTAL PROTEIN, SERUM 7.7 g/dL (6.4-8.2); UREA NITROGEN, BLOOD 54 mg/dL (7-18)
--- NOTE | 2022-11-21 18:20 | NUR ---
ACCU CHECK DONE 111MG/LD
--- NOTE | 2022-11-21 18:24 | NUR ---
UA SENT TO LAB
[2022-11-21] MEDS ORDERED: BRIN8DRO2 EACHEYE (19:28)
[2022-11-21] MEDS ORDERED: CLAR-45 PO (19:28)
[2022-11-21] MEDS ORDERED: AMOX500C2 PO (19:28)
--- NOTE | 2022-11-21 19:36 | NUR ---
COVID SWAB SENT TO LAB
--- NOTE | 2022-11-21 19:36 | NUR ---
HAND OFF POUL RN
[2022-11-21] MEDS ORDERED: MAGNESIUM HYDROXIDE 30 ML UDC PO PRN (21:00)
[2022-11-21] MEDS ORDERED: ONDANSETRON HCL/PF 4 MG/2 ML VIAL IVP PRN (21:00)
[2022-11-21] MEDS ORDERED: CLONIDINE HCL 0.1 MG TABLET PO PRN (21:00)
[2022-11-21] MEDS ORDERED: ZOLPIDEM TARTRATE 5 MG TABLET PO PRN (21:00)
[2022-11-21] MEDS ORDERED: MAG HYDROX/AL HYDROX/SIMETH 30 ML UDC PO PRN (21:00)
[2022-11-21] MEDS ORDERED: Z GUARD REMEDY 4 OZ OINT TP PRN (21:00)
[2022-11-21] MEDS ORDERED: IV NS 0.9% 1,000 ML IV PRN (21:00)
--- NOTE | 2022-11-21 21:32 | NUR ---
REPORT GIVEN TO JEZ 3W
--- NOTE | 2022-11-21 21:58 | NUR ---
PT MOVED TO 310-1 VIA ACLS PROTOCOL
[2022-11-21 22:00] VITALS: BP 152/89
[2022-11-22] VITALS (8 sets, daily range): BP systolic 90–138; BP diastolic 50–89
--- NOTE | 2022-11-22 00:32 | NUR ---
TEACHER LEARNING DISABLED NOTES RECEIVED A 87 YEAR OLD/ MALE [place] SPEAKING UNABLE TO UNDERSTAND SWEDISH WITH [facility] QUILL PICKING MACHINE OPERATOR AT BEDSIDE. WITH DX OF SYNCOPE STATUS POST FALL AT HOME. PATIENT ABLE TO WALK WITH MAXIMUM ASSISTANCE.SKIN ASSESSMENT DONE WITH IV ACCESS AT LAC #18G PATENT AND INTACT; PICTURES TAKEN AND RECORDED. WITH VITAL SIGNS OF BP:150/80, HR:82, RR:20, TEMP:98.1. ATTACHED TO TELE MONITORING DEVICE WITH INITIAL READING OF SR AR 70'S. PM CARE RENDERED. HISTORY TAKEN AND RECORDED. PHYSICAL ASSESSMENT DONE AND RECORDED. ORIENTATION TO THE UNIT DONE. PATIENT IS CONTINENT WITH URINAL AND DIAPER. ATTENDING PHYSICIAN INFORMED. BED ALARM ON. KEPT BED ON LOWER LOCKED POSITION, SIDE RAILS UP X 3 ALL THE TIME, KEPT CALL LIGHT WITHIN AT REACH. WILL CONTINUE TO MONITOR.
[2022-11-22 06:07] LABS: BASOPHILS # (AUTO) 0.1 K/uL (0.0-0.2); EOSINOPHILS % (AUTO) 1.7 % (0.0-6.0); HEMATOCRIT 36 % (39-51); HEMOGLOBIN 12.2 g/dL (13.5-17.5); LYMPHOCYTES # (AUTO) 1.5 K/uL (0.8-4.8); LYMPHOCYTES % (AUTO) 20.9 % (20.0-44.0); MEAN CORPUSCULAR HGB CONC 34 g/dl (31.0-36.0); MEAN CORPUSCULAR VOLUME 99 fL (80-96); MONOCYTES # (AUTO) 0.5 K/uL (0.1-1.30); MONOCYTES % (AUTO) 6.7 % (2.0-12.0); NEUTROPHILS # (AUTO) 5.1 K/uL (1.8-8.9); NEUTROPHILS % (AUTO) 69.7 % (43.0-81.0); PLATELET COUNT (AUTO) 185 K/uL (150-450); RED BLOOD CELL COUNT(AUTO) 3.61 MIL/uL (4.5-6.0); WHITE BLOOD COUNT (AUTO) 7.3 K/uL (4.3-11.0)
--- NOTE | 2022-11-22 06:36 | NUR ---
RAND BUTTING MACHINE OPERATOR NOTES PATIENT FOR URINALYSIS, SPECIMEN CUP AT BEDSIDE. INSTRUCTION GIVEN AND UNDERSTAND BY THE PATIENT.
--- NOTE | 2022-11-22 06:37 | NUR ---
SUBSTATION OPERATOR TRANSFORMING CLOSING NOTES PATIENT IS IN BED A/O X 4 CONGOLESE SPEAKING ON HIGH BACK REST POSITION. PATIENT IS ON BED REST. NO PAIN OR DISCOMFORT NOTED AT THIS TIME. WITH IV ACCESS AT LEFT AC #18G PATENT AND INTACT. PM CARE RENDERED, ALL DUE MEDICATIONS GIVEN, ALL NEEDS ATTENDED. VITAL SIGNS IS WNL, INCONTINENT USES URINAL AND DIAPER.ON CARDIAC DIET TOLERATED. FOR PT AND CARDIAC CONSULTS THIS AM. KEPT BED ON LOWER LOCKED POSITION, KEPT SIDE RAILS UP X 2 ALL THE TIME KEPT PATIENT WARM AND COMFORTABLE. WILL ENDORSED TO NEXT SHIFT FOR CULLEN.
[2022-11-22 06:55] LABS: CALCIUM, SERUM 8.8 mg/dL (8.5-10.1); CARBON DIOXIDE 22 mmol/L (21-32); CHLORIDE 104 mmol/L (98-107); CREATININE 2.1 mg/dL (0.6-1.3); GLUCOSE 97 mg/dL (74-106); MAGNESIUM 1.4 mg/dL (1.8-2.4); PHOSPHORUS 3.8 mg/dL (2.5-4.9); POTASSIUM 4.2 mmol/L (3.5-5.1); SODIUM SERUM 137 mmol/L (136-145); UREA NITROGEN, BLOOD 51 mg/dL (7-18)
[2022-11-22 06:59] LABS: CHOLESTEROL 145 mg/dL (<200); HDL CHOLESTEROL 46 mg/dL (40-60); LDL 90 mg/dL (0-99); THYROID STIMULATING HORMONE 2.603 uIU/mL (0.358-3.74); TRIGLYCERIDES 145 mg/dL (30-150)
--- NOTE | 2022-11-22 07:15 | NUR ---
HAND MEXICAN FOOD MAKER OPENING NOTES RECEIVED PT IN BED WITH HOB ELEVATED, AOX4, PT IS SOUTH AFR[place] SPEAKING MOSTLY BUT ABLE TO UNDERSTAND WELSH. PT IS ON ROOM AIR BREATHING WITHOUT DIFFICULTY, DENIES NO PAIN OR DISCOMFORT. WITH IV ACCESS AT LEFT AC #18G PATENT, INTACT AND FLUSHING WELL. WILL WATCH OUT ORTHOSTATIC HYPOTENSION. SAFETY MEASURES IN PLACE: BED IN LOWEST AND LOCKED POSITION, SIDE RAILS UP X 2. ORIENTED TO ROOM, CALL LIGHT AND TRAY TABLE WITHIN EASY REACH.
--- NOTE | 2022-11-22 07:20 | NUR ---
RN NOTES - ON TELEMONITORING WITH CURRENT READING OF SR 72 BPM
[2022-11-22] MEDS: LEVOTHYROXINE SODIUM 100 MCG TABLET PO SCH (07:35)
[2022-11-22] MEDS: PANTOPRAZOLE 40 MG TABLET.DR PO SCH (07:35)
--- NOTE | 2022-11-22 07:47 | NUR ---
RN NOTES - ACCIDENTALLY DROPPED LEVOTHYROXINE ON THE FLOOR, WITHDREW ANOTHER ONE FROM [facility].
--- NOTE | 2022-11-22 08:57 | NUR ---
RN NOTES - RECEIVED A CALL FROM PHARMACY TO ASK FAMILY TO BRING SIMBRINZA EYEDROPS AND XARELTO 2.5 MG, ATTEMPTED TO CALL PEEWEE THURMAN. [phone] NO ANSWER, LEFT A MESSAGE.
[2022-11-22] MEDS: TIMOLOL 0.5% SOLN OPHTH 5 ML BOTTLE EACHEYE SCH ×2 (09:00→17:00)
[2022-11-22] MEDS: RANOLAZINE 500 MG TAB.ER.12H PO SCH ×2 (09:10→17:51)
[2022-11-22] MEDS: METOPROLOL SUCCINATE 25 MG TAB.SR.24H PO SCH (09:10)
[2022-11-22] MEDS: ALLOPURINOL 100 MG TABLET PO SCH (09:11)
--- NOTE | 2022-11-22 09:13 | NUR ---
RN NOTES - CALLED PHARMACY FOR TIMOLOL DROPS, NOT ISSUED IN THE MED CABINET OF THE PATIENT, ADVISED TO CALL THE FAMILY WELL. WILL CALL GRANDSON.
--- NOTE | 2022-11-22 09:45 | NUR ---
RN NOTES - ORTHOSTATIC HYPOTENSION CHECKED BP - 138/68 HR 75 LYING DOWN BP - 105/55 HR 81 STANDING UP
[2022-11-22 10:12] LABS: BILIRUBIN,URINE NEGATIVE (NEGATIVE); COLOR,URINE YELLOW (YELLOW); LEUKOCYTE ESTERASE ,URINE NEGATIVE (NEGATIVE); NITRITE, URINE NEGATIVE (NEGATIVE); PH,URINE 5.5 (5.0-8.0); PROTEIN,URINE 2+ mg/dl (NEGATIVE); UGLUCOSE NEGATIVE (NEGATIVE); UROBILINOGEN,URINE 0.2 EU/dL (0.2)
[2022-11-22 10:21] LABS: CREATININE, URINE 74.9 MG/DL (30.0-125.0)
[2022-11-22 10:23] LABS: BACTERIA,URINE Rare /HPF (None Seen); RBC,URINE 0-2 /HPF (0-2); SQUAMOUS EPITHELIAL CELL,UR Few /HPF (None Seen); WBC,URINE 0-2 /HPF (0-3)
[2022-11-22] MEDS: Magnesium 1GM/D5W 100ML PREMIX 100 ML IV SCH ×2 (12:00→13:07)
--- NOTE | 2022-11-22 12:22 | NUR ---
RN NOTES - ITALIA AT BEDSIDE, GAVE # OF HH NURSE PALOMO TO CALL FOR HOME MEDS. CALLED PALOMO BUT SHE SAID SHE WILL NOT BE ABLE TO BRING MEDS IN.
--- NOTE | 2022-11-22 12:37 | NUR ---
RN NOTES - PATIENT BROKE HIS TEETH IMPLANTS, CHANGED DIET TO SOFT CONSISTENCY REQUESTED
--- NOTE | 2022-11-22 12:44 | NUR ---
RN NOTES - RECEIVED CALL FROM PHARMACY REGARDING XARELTO AND EYE DROPS, UNABLE TO REACH SOMEONE TO GET IT FOR THE PT. PHARMACY WILL CALL .
[2022-11-22] MEDS: BRIMONIDINE TARTRATE OPHT SOLN 5 ML BOTTLE EACHEYE SCH (17:50)
[2022-11-22] MEDS: AMOXICILLIN TRIHYDRATE 250 MG CAPSULE PO SCH (17:51)
[2022-11-22] MEDS: RIVAROXABAN 10 MG TABLET PO SCH (17:52)
[2022-11-22] MEDS: CLARITHROMYCIN 500 MG TABLET PO SCH (17:52)
--- NOTE | 2022-11-22 18:05 | NUR ---
RN NOTES - TIMOLOL NOT AVAILABLE
[2022-11-22] MEDS: LATANOPROST EYE DROP 0.005% 2.5 ML BOTTLE EACHEYE SCH (18:07)
--- NOTE | 2022-11-22 18:08 | NUR ---
RN NOTES - PATIENT REQUESTED FOR SLEEP MEDICATION, PENNIED SAMRA HOLLIS FOR THE ORDER AND DVT PROPHYLAXIS WELL. Addendum: 11/22/22 at 1834 by FABIÁN RODRIGUEZ RN AMBIEN 5 MG PRN WAS ORDERED, AND PATIENT ON XARELTO 2.5 MG, NO NEED FOR LOVENOX.
--- NOTE | 2022-11-22 19:15 | NUR ---
SAFETY COORDINATOR OPENING NOTES RECEIVED PATIENT IN BED WITH HOB ELEVATED, AOX4, ABLE TO MAKE NEEDS KNOWN. ON ROOM AIR BREATHING WITHOUT DIFFICULTY, NO COMPLAINS OF PAIN OR DISCOMFORT. WITH IV ACCESS AT LEFT AC #18G PATENT, INTACT AND FLUSHING WELL. PATIENT IN TELEMONITOR READING OF SINUS RHYTHM WITH HR 68BPM. SAFETY MEASURES MAINTAINED: BED IN LOWEST AND LOCKED POSITION, SIDE RAILS UP X 2, BED ALARM ON, CALL LIGHT AND TRAY TABLE WITHIN EASY REACH.
--- NOTE | 2022-11-22 19:35 | NUR ---
POLICE ACADEMY PROGRAM COORDINATOR CLOSING NOTES PT IN BED WITH HOB ELEVATED, AOX4, COMPLIANT, FOLLOWS COMMAND. ON ROOM AIR BREATHING WITHOUT DIFFICULTY, NO PAIN OR DISCOMFORT. WITH IV ACCESS AT LEFT AC #18G PATENT, INTACT AND FLUSHING WELL. TELEMONITORING SHOWING SINUS RHYTHM WITH HR 65. ALL DUE MEDS GIVEN, ALL NEEDS MET. SAFETY MEASURES MAINTAINED: BED IN LOWEST AND LOCKED POSITION, SIDE RAILS UP X 2, BED ALARM ON, CALL LIGHT AND TRAY TABLE WITHIN EASY REACH. ENDORSED TO LOOP CUTTER NURSE.
[2022-11-22] MEDS: ATORVASTATIN 40 MG TABLET PO SCH (21:07)
[2022-11-22] MEDS: ZOLPIDEM TARTRATE 5 MG TABLET PO PRN (21:08)
--- NOTE | 2022-11-22 21:10 | NUR ---
RN NOTE PATIENT REQUESTED FOR AMBIEN FOR INSOMIA. MEDICATION IS GIVEN. WILL REASSESS.
--- NOTE | 2022-11-22 22:08 | NUR ---
RN NOTE INSOMNIA RESOLVED. PATIENT IS SLEEPING COMFORTABLY NOTED TO BE BREATHING EVENLY AND UNLABORED.
[2022-11-23] VITALS (9 sets, daily range): BP systolic 98–139; BP diastolic 43–87
[2022-11-23 06:02] LABS: BASOPHILS # (AUTO) 0.1 K/uL (0.0-0.2); BASOPHILS % (AUTO) 0.8 % (0.0-2.0); EOSINOPHILS % (AUTO) 2.5 % (0.0-6.0); HEMATOCRIT 37 % (39-51); HEMOGLOBIN 12.5 g/dL (13.5-17.5); LYMPHOCYTES # (AUTO) 1.5 K/uL (0.8-4.8); LYMPHOCYTES % (AUTO) 23.3 % (20.0-44.0); MEAN CORPUSCULAR HGB CONC 34 g/dl (31.0-36.0); MEAN CORPUSCULAR VOLUME 100 fL (80-96); MONOCYTES # (AUTO) 0.5 K/uL (0.1-1.30); MONOCYTES % (AUTO) 7.1 % (2.0-12.0); NEUTROPHILS # (AUTO) 4.4 K/uL (1.8-8.9); NEUTROPHILS % (AUTO) 66.3 % (43.0-81.0); PLATELET COUNT (AUTO) 181 K/uL (150-450); RED BLOOD CELL COUNT(AUTO) 3.66 MIL/uL (4.5-6.0); WHITE BLOOD COUNT (AUTO) 6.6 K/uL (4.3-11.0)
[2022-11-23 06:07] LABS: CARBON DIOXIDE 24 mmol/L (21-32); CHLORIDE 105 mmol/L (98-107); CREATININE 2.2 mg/dL (0.6-1.3); GLUCOSE 122 mg/dL (74-106); MAGNESIUM 1.9 mg/dL (1.8-2.4); PHOSPHORUS 4.1 mg/dL (2.5-4.9); POTASSIUM 4.4 mmol/L (3.5-5.1); SODIUM SERUM 139 mmol/L (136-145); UREA NITROGEN, BLOOD 54 mg/dL (7-18)
--- NOTE | 2022-11-23 06:55 | NUR ---
PARTS CATALOGUER CLOSING NOTES PATIENT IN BED AWAKE, WITH HOB ELEVATED, AOX4, ABLE TO MAKE NEEDS KNOWN. ON ROOM AIR BREATHING WITHOUT DIFFICULTY, NO COMPLAINS OF PAIN OR DISCOMFORT. WITH IV ACCESS AT LEFT AC #18G PATENT, INTACT AND FLUSHING WELL. PATIENT IN TELEMONITOR READING OF SINUS RHYTHM WITH HR 89. ALL DUE MEDICATIONS ARE GIVEN. MADE SURE PATIENT IS COMFORTABLE. SAFETY MEASURES MAINTAINED: BED IN LOWEST AND LOCKED POSITION, SIDE RAILS UP X 2, BED ALARM ON, CALL LIGHT AND TRAY TABLE WITHIN EASY REACH. ENDORSED TO NEXT SHIFT NURSE FOR CONTINUITY OF CARE.
--- NOTE | 2022-11-23 07:05 | NUR ---
RN OPENING NOTE RECEIVED PATIENT IN BED WITH HOB ELEVATED, AOX4, COMORAN SPEAKING, ABLE TO MAKE NEEDS KNOWN. ON ROOM AIR, SAT 96%, NO SOB. NO COMPLAINS OF PAIN OR DISCOMFORT. IV ACCESS LEFT AC #18G PATENT, INTACT, NS RUNNING @75ML/HR. EXTERNAL TELEMONITOR SHOWS SR/ HR 68BPM. SAFETY MEASURES IMPLEMENTED, BED IN LOWEST AND LOCKED POSITION, CALL LIGHT AND TRAY TABLE WITHIN EASY REACH. WILL CONTINUE TO MONITOR.
[2022-11-23] MEDS: LEVOTHYROXINE SODIUM 100 MCG TABLET PO SCH (07:57)
[2022-11-23] MEDS: PANTOPRAZOLE 40 MG TABLET.DR PO SCH (07:57)
[2022-11-23] MEDS ORDERED: IV NS 0.9% 1,000 ML IV PRN (08:46)
[2022-11-23] MEDS: CLARITHROMYCIN 500 MG TABLET PO SCH ×2 (09:00→16:35)
[2022-11-23] MEDS: RANOLAZINE 500 MG TAB.ER.12H PO SCH ×2 (09:11→16:32)
[2022-11-23] MEDS: METOPROLOL SUCCINATE 25 MG TAB.SR.24H PO SCH (09:11)
[2022-11-23] MEDS: ALLOPURINOL 100 MG TABLET PO SCH (09:11)
[2022-11-23] MEDS: RIVAROXABAN 10 MG TABLET PO SCH ×2 (09:13→16:35)
[2022-11-23] MEDS: BRIMONIDINE TARTRATE OPHT SOLN 5 ML BOTTLE EACHEYE SCH ×2 (09:14→16:35)
[2022-11-23] MEDS: TIMOLOL 0.5% SOLN OPHTH 5 ML BOTTLE EACHEYE SCH ×2 (09:14→16:36)
[2022-11-23] MEDS: AMOXICILLIN TRIHYDRATE 250 MG CAPSULE PO SCH ×2 (09:30→16:32)
[2022-11-23] MEDS: LATANOPROST EYE DROP 0.005% 2.5 ML BOTTLE EACHEYE SCH (17:26)
--- NOTE | 2022-11-23 18:30 | NUR ---
RN CLOSING NOTE PATIENT IN BED, SITTING, AOX4, OMANI SPEAKING, ABLE TO MAKE NEEDS KNOWN. ON ROOM AIR, SAT 95%, NO SOB. NO COMPLAINS ON PAIN OR DISCOMFORT. IV ACCESS LEFT AC #18G PATENT, INTACT, NS RUNNING @75ML/HR. EXTERNAL TELEMONITOR SHOWS SR/ HR 72 BPM. PT AMBULATORY WITH ASSISTANCE. ALL NEEDS ATTENDED, SAFETY MEASURES IN PLACE, BED IN LOWEST AND LOCKED POSITION, CALL LIGHT AND TRAY TABLE WITHIN EASY REACH. WILL ENDORSE TO THE ASSEMBLER DC FIELD RING NURSE FOR CULLEN.
--- NOTE | 2022-11-23 19:30 | NUR ---
SAMPLE TESTER OPENING NOTE RECEIVED PATIENT FROM AM NURSE; SITTING IN BED, A/O X 4, MARTIN[place]QUAIS SPEAKING BUT CAN UNDERSTAND LITTLE ROMANIAN, ABLE TO MAKE NEEDS KNOWN; STABLE ON ROOM AIR, NO S/S OF DISTRESS AND SOB NOTED; WITH IV ACCESS AT LEFT AC G#18 WITH NS RUNNING AT 75ML/HR; HOOKED TO TELE MONITORING; SAFETY MEASURES IN PLACE, BED LOCKED IN LOWEST POSITION, CALL LIGHT AND TRAY TABLE WITHIN EASY REACH; WILL CONTINUE TO MONITOR THROUGHOUT SHIFT
[2022-11-23] MEDS: ATORVASTATIN 40 MG TABLET PO SCH (21:01)
[2022-11-23] MEDS: ZOLPIDEM TARTRATE 5 MG TABLET PO PRN (21:02)
--- NOTE | 2022-11-23 23:00 | NUR ---
HAZARDOUS SUBSTANCES SCIENTIST NOTE UPON MAKING ROUNDS, NOTED THAT PATIENT'S IV WAS LEAKING. CHECKED IV AND REMOVED COMPLETELY; REINSERTED IV AT RIGHT HAND G#22, FLUSHING WELL AND CONTINUE INFUSING NORMAL SALINE AT 40ML/HR; WILL CONTINUE TO MONITOR
[2022-11-24] MEDS: ACETAMINOPHEN 325 MG TABLET PO PRN ×2 (02:42→03:20)
[2022-11-24 05:00] VITALS: BP 119/67
[2022-11-24 05:57] LABS: BASOPHILS # (AUTO) 0.1 K/uL (0.0-0.2); BASOPHILS % (AUTO) 0.6 % (0.0-2.0); EOSINOPHILS % (AUTO) 1.5 % (0.0-6.0); HEMATOCRIT 35 % (39-51); LYMPHOCYTES # (AUTO) 1.2 K/uL (0.8-4.8); LYMPHOCYTES % (AUTO) 14.7 % (20.0-44.0); MEAN CORPUSCULAR HGB CONC 34 g/dl (31.0-36.0); MEAN CORPUSCULAR VOLUME 99 fL (80-96); MONOCYTES # (AUTO) 0.4 K/uL (0.1-1.30); MONOCYTES % (AUTO) 5.3 % (2.0-12.0); NEUTROPHILS # (AUTO) 6.4 K/uL (1.8-8.9); NEUTROPHILS % (AUTO) 77.9 % (43.0-81.0); PLATELET COUNT (AUTO) 176 K/uL (150-450); RED BLOOD CELL COUNT(AUTO) 3.51 MIL/uL (4.5-6.0); WHITE BLOOD COUNT (AUTO) 8.2 K/uL (4.3-11.0)
[2022-11-24 06:28] LABS: CALCIUM, SERUM 9.1 mg/dL (8.5-10.1); CARBON DIOXIDE 24 mmol/L (21-32); CHLORIDE 105 mmol/L (98-107); CREATININE 1.9 mg/dL (0.6-1.3); GLUCOSE 123 mg/dL (74-106); PHOSPHORUS 2.9 mg/dL (2.5-4.9); POTASSIUM 4.3 mmol/L (3.5-5.1); SODIUM SERUM 138 mmol/L (136-145); UREA NITROGEN, BLOOD 48 mg/dL (7-18)
--- NOTE | 2022-11-24 06:47 | NUR ---
FOOD SCIENTIST CLOSING NOTE PATIENT RESTING IN BED, A/O X 4, MICRONESIAN SPEAKING BUT CAN UNDERSTAND LITTLE FINNISH, ABLE TO MAKE NEEDS KNOWN; STABLE ON ROOM AIR, NO S/S OF DISTRESS AND SOB NOTED; WITH IV ACCESS AT RIGHT HAND G#20 SALINE LOCK; HOOKED TO TELE MONITORING CURRENTLY READING SINUS RHYTHM 70S BPM; ADMINISTERED MEDICATIONS PRESCRIBED; PATIENT'S NEEDS ATTENDED; MONITORED PATIENT ACCORDINGLY; SAFETY MEASURES IN PLACE, BED LOCKED IN LOWEST POSITION, CALL LIGHT AND TRAY TABLE WITHIN EASY REACH; WILL ENDORSE TO AM NURSE FOR CULLEN.
[2022-11-24 07:00] VITALS: BP 133/67
--- NOTE | 2022-11-24 07:00 | NUR ---
PAPER CLEANER OPENING NOTES: RECEIVED PT IN BED AWAKE, ALERT AND ORIENTED X 4 CITIZEN OF [place] AND [place] SPEAKING. NO SOB OR CARDIAC DISTRESS NOTED. ON TELE MONITOR WITH CURRENT READING:SINUS RHYTHM @77BPM. IV ACCESS ON R HAND GAUGE 22 PATENT, INTACT AND INFUSING NS 1L @40 ML/HR. SAFETY MEASURES MAINTAINED: BED LOCKED AND IN LOWEST POSITION, SIDE RAILS UP X 2. CALL LIGHT IN EASY REACH FOR HELP. WILL MONITOR PT ACCORDINGLY.
[2022-11-24] MEDS: PANTOPRAZOLE 40 MG TABLET.DR PO SCH (07:44)
[2022-11-24] MEDS: LEVOTHYROXINE SODIUM 100 MCG TABLET PO SCH (07:44)
[2022-11-24] MEDS: AMOXICILLIN TRIHYDRATE 250 MG CAPSULE PO SCH (08:55)
[2022-11-24] MEDS: METOPROLOL SUCCINATE 25 MG TAB.SR.24H PO SCH (08:55)
[2022-11-24] MEDS: ALLOPURINOL 100 MG TABLET PO SCH (08:55)
[2022-11-24] MEDS: RIVAROXABAN 10 MG TABLET PO SCH ×2 (08:56→17:12)
[2022-11-24] MEDS: RANOLAZINE 500 MG TAB.ER.12H PO SCH ×2 (08:56→17:11)
[2022-11-24] MEDS: CLARITHROMYCIN 500 MG TABLET PO SCH (09:00)
[2022-11-24] MEDS: BRIMONIDINE TARTRATE OPHT SOLN 5 ML BOTTLE EACHEYE SCH ×2 (09:02→17:32)
[2022-11-24] MEDS: TIMOLOL 0.5% SOLN OPHTH 5 ML BOTTLE EACHEYE SCH ×2 (10:56→17:22)
[2022-11-24 11:59] VITALS: BP 149/77
[2022-11-24 15:48] VITALS: BP 148/71
[2022-11-24] MEDS: LATANOPROST EYE DROP 0.005% 2.5 ML BOTTLE EACHEYE SCH (17:23)
--- NOTE | 2022-11-24 18:43 | NUR ---
PEOPLESOFT PROGRAMMER CLOSING NOTES: PT IN BED AWAKE, ALERT AND ORIENTED X 4 NORTH KOREAN SPEAKING. NO SOB OR CARDIAC DISTRESS NOTED. ON TELE MONITOR BUT REFUSED. IV ACCESS ON R HAND GAUGE 22 PATENT, INTACT AND INFUSING NS 1L @40 ML/HR- REFUSED. SAFETY MEASURES MAINTAINED: BED LOCKED AND IN LOWEST POSITION, SIDE RAILS UP X 2. CALL LIGHT IN EASY REACH FOR HELP. WILL MONITOR PT ACCORDINGLY.ENDORSED TO SILVERING DEPARTMENT SUPERVISOR RN FOR CONTINUITY OF CARE.
--- NOTE | 2022-11-24 19:48 | NUR ---
CENTER RECEPTIONIST OPENING NOTES RECEIVED PT IN BED AWAKE, ALERT AND ORIENTED. A/O X 4, ABLE TO MAKE NEEDS KNOWN. ON ROOM AIR, BREATHING EVEN AND UNLABORED, NO DISTRESS AND SOB NOTED. NO SIGNS OF PAIN AT THIS TIME. PATIENT REFUSED TELE MONITOR AND IV ACCESS ENDORSED. S/P SURGERY JPRATT DRAINAGE IS IN PLACE, INTACT, DRAINING WELL. SURGICAL DRESSING IS ASSESSED: NOTED TO BE DRY AND INTACT. SAFETY MEASURES IN PLACE WITH BED LOCKED AND IN LOWEST POSITION. HOB ELEVATED. SIDE RAILS UP X 3. BED SIDE TABLE AND CALL LIGHT WITHIN PATIENT REACH. WILL CONTINUE WITH THE PLAN OF CARE.
[2022-11-24 20:00] VITALS: BP 133/61
[2022-11-24] MEDS: ATORVASTATIN 40 MG TABLET PO SCH (22:25)
--- NOTE | 2022-11-24 22:30 | NUR ---
RN NOTES WHILE DOING 22:00 INTERVENTION, PATIENT'S BP LEVEL WHILE LYING DOWN IS 168/79 IA:75. RECHECKED BP AFTER 10 MINS, PATIENT'S BP LEVEL IS 178/72 IA-68. RE-CHECKED BP MANUALLY, BP LEVEL IS 170/90. GAVE CLONIDINE 0.1MG PRN. WILL MONITOR AND ASSESS THE PATIENT AFTER 30 MINS.
[2022-11-24] MEDS ORDERED: TEMAZEPAM 15 MG CAPSULE PO PRN (23:00)
--- NOTE | 2022-11-24 23:00 | NUR ---
RN NOTES RECHECKED PATIENT'S BP AFTER 30 MINS. BP LEVEL IS 143/65 HR IS 62. WILL RECHECK AGAIN AFTER 30 MINS.
--- NOTE | 2022-11-24 23:30 | NUR ---
RN NOTES RECHECKED PATIENT'S BP AFTER 30 MINS. BP LEVEL IS 129/61 HR IS 64. WILL RECHECK AGAIN AFTER 30 MINS.
[2022-11-25 06:06] LABS: ALANINE AMINOTRANSFERASE 21 U/L (12-78); ALBUMIN 3.1 g/dL (3.4-5.0); ALKALINE PHOSPHATASE 72 U/L (46-116); ASPARTATE AMINOTRANSFERASE 13 U/L (15-37); BILIRUBIN,TOTAL 0.5 mg/dL (0.2-1.0); CARBON DIOXIDE 23 mmol/L (21-32); CHLORIDE 105 mmol/L (98-107); CREATININE 1.8 mg/dL (0.6-1.3); GLUCOSE 121 mg/dL (74-106); MAGNESIUM 1.8 mg/dL (1.8-2.4); PHOSPHORUS 4.1 mg/dL (2.5-4.9); POTASSIUM 4.3 mmol/L (3.5-5.1); SODIUM SERUM 137 mmol/L (136-145); TOTAL PROTEIN, SERUM 6.3 g/dL (6.4-8.2); UREA NITROGEN, BLOOD 45 mg/dL (7-18)
--- NOTE | 2022-11-25 06:59 | NUR ---
MS RN CLOSING NOTES PT IN BED SSLEEPING IN BED. EASILY AWAKEN BY VERBAL STIMULI. A/O X 4, ABLE TO MAKE NEEDS KNOWN. ON ROOM AIR, BREATHING EVEN AND UNLABORED, NO DISTRESS AND SOB NOTED. NO SIGNS OF PAIN AT THIS TIME. PATIENT REFUSED TELE MONITOR AND IV ACCESS ENDORSED. S/P SURGERY JPRATT DRAINAGE IS IN PLACE, INTACT, DRAINING WELL. SURGICAL DRESSING IS ASSESSED: NOTED TO BE DRY AND INTACT. SAFETY MEASURES MAINTAINED. WILL ENDORSE TO THE NEXT SHIFT.
--- NOTE | 2022-11-25 07:06 | NUR ---
MS RN OPENING NOTES RECEIVED PATIENT SLEEPING IN BED, A/Ox4, PANAMANIAN SPEAKING, ABLE TO MAKE NEEDS KNOWN. ON ROOM AIR, NO S/S OF RESPIRATORY DISTRESS. NO S/S OF PAIN OR DISCOMFORT. NO IV ACCESS, PATIENT REFUSING NEW LINE. MD AND CHARGE NURSE AWARE. AMB WITH ASSIST, CONTINENT. SKIN ISSUE: R BIG TOE WOUND, R ELBOW REDNESS, SACRAL REDNESS. SAFETY MEASURES IN PLACE: BED LOCKED AND IN LOWEST POSITION, HOB ELEVATED, SIDE RAILS UPx2, CALL LIGHT WITHIN REACH. WILL CONTINUE TO MONITOR.
[2022-11-25 08:00] VITALS: BP 122/66
[2022-11-25] MEDS: LEVOTHYROXINE SODIUM 100 MCG TABLET PO SCH (08:22)
[2022-11-25] MEDS: RANOLAZINE 500 MG TAB.ER.12H PO SCH (08:22)
[2022-11-25] MEDS: PANTOPRAZOLE 40 MG TABLET.DR PO SCH (08:22)
[2022-11-25 08:23] VITALS: BP 122/66
[2022-11-25] MEDS: METOPROLOL SUCCINATE 25 MG TAB.SR.24H PO SCH (08:23)
[2022-11-25] MEDS: ALLOPURINOL 100 MG TABLET PO SCH (08:23)
[2022-11-25] MEDS: RIVAROXABAN 10 MG TABLET PO SCH (08:24)
[2022-11-25] MEDS: TIMOLOL 0.5% SOLN OPHTH 5 ML BOTTLE EACHEYE SCH (08:25)
[2022-11-25] MEDS: BRIMONIDINE TARTRATE OPHT SOLN 5 ML BOTTLE EACHEYE SCH (08:25)
--- NOTE | 2022-11-25 15:24 | NUR ---
WEIGHBRIDGE OPERATOR NOTES PATIENT DISCHARGE TO REHAB, REPORT GIVEN TO YOEL MARTINEZ. A/Ox4, FILIP[place] SPEAKING, ABLE TO MAKE NEEDS KNOWN. STABLE ON ROOM AIR, NO S/S OF RESPIRATORY DISTRESS. IV ACCESS REMOVED AND PRESSURE DRESSING APPLIED. ID BAND REMOVED. ALL HEALTH TEACHINGS AND DISCHARGE INSTRUCTIONS EXPLAINED TO PATIENT, VERBALIZED UNDERSTANDING. ALL SKIN ISSUES PHOTOGRAPHED AND FILED INTO CHART. ALL FORMS SIGNED AND COPIED, FILED INTO CHART. PATIENT LEFT UNIT @1440, ACCOMPANIED BY TWO towboat engineer. CHARGE NURSE AND MD AWARE OF DISCHARGE.
== END 2022-11-25 14:43 | DRG 312 ==
LOC: ER 17:09 → TELE 21:24 → MED 11-24 22:08
PROVIDERS: ADMIT Nurse Practitioner Acute Care; ATTEND Student in an Organized Health Care Education/Training Program
DX: I95.1 Orthostatic hypotension (principal); N17.0 Acute kidney failure with tubular necrosis; I13.0 Hypertensive heart and chronic kidney disease with heart failure and stage 1 through stage 4 chronic kidney disease, or unspecified chronic kidney disease; E87.3 Alkalosis; E86.0 Dehydration; I50.9 Heart failure, unspecified; Z20.822 Contact with and (suspected) exposure to COVID-19; I25.10 Atherosclerotic heart disease of native coronary artery without angina pectoris; Z95.5 Presence of coronary angioplasty implant and graft; E03.9 Hypothyroidism, unspecified; E78.5 Hyperlipidemia, unspecified; K21.9 Gastro-esophageal reflux disease without esophagitis; H40.9 Unspecified glaucoma; Z95.1 Presence of aortocoronary bypass graft; Z79.01 Long term (current) use of anticoagulants; Z79.899 Other long term (current) drug therapy; N18.9 Chronic kidney disease, unspecified; E83.42 Hypomagnesemia; D50.9 Iron deficiency anemia, unspecified; E87.6 Hypokalemia; I70.0 Atherosclerosis of aorta; S00.11XA Contusion of right eyelid and periocular area, initial encounter; F03.90 Unspecified dementia, unspecified severity, without behavioral disturbance, psychotic disturbance, mood disturbance, and anxiety; Z91.199 Patient's noncompliance with other medical treatment and regimen due to unspecified reason; M10.9 Gout, unspecified; I25.2 Old myocardial infarction; B96.81 Helicobacter pylori [H. pylori] as the cause of diseases classified elsewhere; Y92.121 Bathroom in nursing home as the place of occurrence of the external cause; W18.30XA Fall on same level, unspecified, initial encounter
CPT/HCPCS: 36415; 70450-TC; 71045-TC; 76770-TC; 80048-TC; 80053-TC; 80061-TC; 80076-TC; 81001; 82570-TC; 82962-TC; 83735-TC; 83880; 84100-TC; 84300-TC; 84443-TC; 84484-TC; 85025-TC; 85730-TC; 87081-TC; 93307-TC; 97112-TC; 97116-TC; 97530-TC; A4223; C9803; G0378; J3475; J7030; J7040